=== PATIENT | male | born 1945 | race African-American/Black ===

== ENCOUNTER 2016-05-30 09:18 | Emergency (ER) | payer OTHER ==
[~2016-05-30] VITALS: Ht 190.5 cm; Wt 93.0 kg
[~2016-05-30 09:18] MED LIST: ACETAMINOPHEN325 M1 PO; ALLOPURINOL 30300 M1 PO; AMLODIPINE BESY10 MG PO; ASPIRIN325 PO; ATIVAN1 MG PO; BACTRIM DS TAB1 EACH PO; FLOMAX0.4 MG PO; LEVOTHYROXINE0.05 MG PO; LISINOPRIL40 MG PO; LOPRESSOR 50 MG50 M1 PO; LOPRESSOR100 M1 PO; NICOTINE TRANSD21 M1 TRANSDERM; PRINIVIL20 MG PO; PROTONIX40 M4 PO; SEROQUEL 12.512.5 MG PO
[2016-05-30 10:10] LABS: ABSOLUTE NEUTROPHILS 3.2 thou/uL (1.4-8.2); BASOPHILS 0.9 % (0.0-2.0); EOSINOPHILS 1.8 % (0.0-3.0); HEMATOCRIT 33.5 % (42.0-52.0); HEMOGLOBIN 11.2 gm/dL (14.0-18.0); LYMPHOCYTES 35.7 % (24.0-44.0); MCH 26.7 pg (26.0-34.0); MCHC 33.5 % (28.0-37.0); MCV 79.7 fL (80.0-100.0); MONOCYTES 10.1 % (1.0-8.0); PLATELET COUNT 177 thou/uL (150-400); POLYS 51.5 % (36.0-66.0); RBC 4.21 mil/uL (4.50-6.00); RDW 15.1 % (10.5-14.5); WBC 6.2 thou/uL (4.0-11.0)
[2016-05-30] MEDS ORDERED: ZANTAC 150MG T150 M1 PO (10:13)
[2016-05-30] MEDS ORDERED: MIRALAX PO (10:15)
[2016-05-30 10:17] LABS: MANUAL DIFF NO
[2016-05-30 10:30] LABS: ALBUMIN 2.8 g/dL (3.4-5.0); CALCIUM 8.9 mg/dL (8.5-10.1); TOTAL BILIRUBIN 0.5 mg/dL (<0.1-1.0); TOTAL PROTEIN 7.9 g/dL (6.4-8.2)
[2016-05-30 11:09] LABS: URINE BILIRUBIN NEGATIVE (Negative); URINE BLOOD 3+ (Negative); URINE COLOR YELLOW; URINE GLUCOSE-RANDOM* NEGATIVE (Negative); URINE KETONES NEGATIVE (Negative); URINE LEUKOCYTES-REFLEX 3+ (Negative); URINE PROTEIN (DIPSTICK) 3+ (Negative); URINE SPECIFIC GRAVITY 1.025 (1.003-1.035); URINE UROBILINOGEN 0.2 E.U./dl (0.2-1.0)
[2016-05-30 11:16] LABS: CRYSTALS None Seen /LPF (None Seen); URINE WBC-REFLEX >25 Many /HPF (0-5)
[2016-05-30 11:17] LABS: CASTS None Seen /LPF (None Seen); SQUAMOUS None Seen /LPF (0-3); URINE RBC 3-10 Few /HPF (0-2)
[2016-05-30] MEDS ORDERED: KEFLEX500 MG PO (11:30)
== END 2016-05-30 12:12 | disposition home or self-care (01) ==
LOC: ER 09:18
PROVIDERS: Physician Assistant
DX: N39.0 Urinary tract infection, site not specified (principal); R30.0 Dysuria; I11.0 Hypertensive heart disease with heart failure; F03.90 Unspecified dementia, unspecified severity, without behavioral disturbance, psychotic disturbance, mood disturbance, and anxiety; F17.210 Nicotine dependence, cigarettes, uncomplicated; Z86.73 Personal history of transient ischemic attack (TIA), and cerebral infarction without residual deficits

== ENCOUNTER 2019-06-17 09:54 | Inpatient (IN) | payer OTHER ==
[~2019-06-17] VITALS: Ht 190.5 cm; Wt 100.1 kg
[~2019-06-17 09:54] MED LIST changes: +KEFLEX500 MG PO; +MIRALAX PO; +ZANTAC 150MG T150 M1 PO
[2019-06-17 10:09] VITALS: BP 106/62
[2019-06-17 11:11] LABS: ABSOLUTE NEUTROPHILS 7.2 thou/uL (1.4-8.2); BASOPHILS 0.2 % (0.0-2.0); EOSINOPHILS 0.1 % (0.0-3.0); HEMOGLOBIN 13.3 gm/dL (14.0-18.0); LYMPHOCYTES 4.8 % (24.0-44.0); MCH 26.5 pg (26.0-34.0); MCHC 32.4 g/dL (28.0-37.0); MCV 81.8 fL (80.0-100.0); MONOCYTES 5.8 % (1.0-8.0); PLATELET COUNT 141 thou/uL (150-400); POLYS 89.1 % (36.0-66.0); RBC 5.02 mil/uL (4.50-6.00); RDW 15.2 % (10.5-14.5); WBC 8.1 thou/uL (4.0-11.0)
[2019-06-17 11:15] LABS: ANION GAP 11 mmol/L (7-16); BUN 16 mg/dL (7-18); CALCIUM 8.8 mg/dL (8.5-10.1); CHLORIDE 107 mmol/L (98-107); CO2 26 mmol/L (21-32); CREATININE 1.4 mg/dL (0.7-1.3); GLUCOSE 168 mg/dL (74-106); POTASSIUM 3.9 mmol/L (3.5-5.1); SODIUM 144 mmol/L (136-145)
[2019-06-17 11:24] LABS: ALBUMIN 3.5 g/dL (3.4-5.0); DIRECT BILIRUBIN < 0.1 mg/dL (<0.1-0.2); SGOT 26 U/L (15-37); SGPT 28 U/L (30-65); TOTAL BILIRUBIN 0.5 mg/dL (<0.1-1.0); TROPONIN-I 0.17 ng/mL (<0.06)
[2019-06-17 11:25] LABS: URINE BILIRUBIN NEGATIVE (Negative); URINE BLOOD 3+ (Negative); URINE CLARITY CLOUDY; URINE COLOR YELLOW; URINE GLUCOSE-RANDOM* NEGATIVE (Negative); URINE KETONES TRACE (Negative); URINE LEUKOCYTES-REFLEX 2+ (Negative); URINE NITRITE-REFLEX POSITIVE (Negative); URINE PROTEIN (DIPSTICK) 2+ (Negative); URINE SPECIFIC GRAVITY >= 1.030 (1.005-1.035)
[2019-06-17 11:33] LABS: CASTS None Seen /LPF (None Seen); SQUAMOUS 0-3 Few /LPF (0-3); YEAST-REFLEX Present (None Seen)
[2019-06-17 11:34] LABS: AMORPHOUS URATES Moderate /LPF (None Seen); URINE RBC None Seen /HPF (0-2); URINE WBC-REFLEX >25 Many /HPF (0-5)
[2019-06-17] MEDS ORDERED: PROSCAR 5MG TABL5 M1 PO (13:21)
[2019-06-17] MEDS ORDERED: KLOR-CON M2020 MEQ PO (13:22)
[2019-06-17 13:41] VITALS: BP 137/73
[2019-06-17 14:29] VITALS: BP 136/62
[2019-06-17 14:47] VITALS: BP 149/78
[2019-06-17 16:58] VITALS: BP 131/80
--- NOTE | 2019-06-17 17:38 | NUR ---
PT ADMITTED TO 364 FROM ER. PT ALERT AND ORIENTED X2. PT DISORIENTED TO PLACE, TIME. PT FOLLOWS COMMANDS, IN ROOM. PT IS A POOR HISTORIAN. PT HAS A MEDICAL HISTORY OF ALZEIMER'S. PT CONSENTS SIGNED BY WHO IS ALSO DPOA FOR PATIENT. PT AND ORIENTED TO ROOM. PT ADMISSION PAPEROWRK AND ASSESSMENT COMAPLETED. CALL LIGHT IN REACH, BED AT LOWEST LEVEL WITH ALARM ON. wILL CONTINUE TO [facility] .
--- NOTE | 2019-06-17 17:45 | NUR ---
1645 PT HAD AN EPISODE OF VOMITING,LOOKED LIKE FOOD RESIDUAL, PINK IN COLOR.DR. MARTINEZ IN ROOM, PANCHO GIVEN PER ORDER. wILL CONTINUE TO MONITOR.
[2019-06-17 19:12] VITALS: BP 160/74
[2019-06-18] VITALS (7 sets, daily range): BP systolic 147–193; BP diastolic 88–120
--- NOTE | 2019-06-18 02:28 | NUR ---
Patient making slow progress towards outcome goals. Incontinent of bowel and bladder. Vomitted previously ingested food for dinner, Zofran given with relief. IVfluids infusing. Oxygenation optimal on room air. Vital signs and rhythm stable.
[2019-06-18 06:50] LABS: HEMATOCRIT 39.2 % (42.0-52.0); HEMOGLOBIN 12.6 gm/dL (14.0-18.0); MCH 26.4 pg (26.0-34.0); MCHC 32.1 g/dL (28.0-37.0); MCV 82.4 fL (80.0-100.0); RBC 4.76 mil/uL (4.50-6.00); RDW 15.5 % (10.5-14.5); WBC 5.3 thou/uL (4.0-11.0)
[2019-06-18 07:03] LABS: CALCIUM 7.8 mg/dL (8.5-10.1); CREATININE 1.2 mg/dL (0.7-1.3); POTASSIUM 3.5 mmol/L (3.5-5.1); TROPONIN-I 0.19 ng/mL (<0.06)
--- NOTE | 2019-06-18 12:11 | NUR ---
Pt care taken over at 0700. pt alert and oriented to self and place. pt seeemed forgetful and agressive at times. education reinforced. Pt assessment completed. Call light and table in reach, bed alarm on. Will continue to monitor.
--- NOTE | 2019-06-18 15:02 | NUR ---
INITIAL ASSESSMENT: SW reviewed chart and spoke with nursing and attending physician. Pt was admitted from home due to UTI/sepsis. Pt with hx of dementia. SW met with pt at bedside. Introduced role of SW. Pt able to answer simple questions. No family present during time of visit. SW left voice message for pt's , Natalie, to obtain assessment info and discuss discharge plan. Therapy ordered to evaluate pt for discharge needs. SW is following to assist as needed with discharge planning.
--- NOTE | 2019-06-18 16:36 | NUR ---
Pt has had 3 watery BM, yellow in color. sample send to lab for possible C-diff. isolation precautions in place
--- NOTE | 2019-06-18 22:30 | NUR ---
INITIAL SBP 190. CYNTHIA LOPRESSOR PROVIDED. SBP 180/105 HR 90. BUSINESS SUPPORT CALLED RE PT HAD RUN OF 42 VTACH NOT SYMPTOMATIC. STAT LABS ORDERED. CHARGE NURSE NOTIFIED.
[2019-06-18 22:58] LABS: MAGNESIUM 1.6 mg/dL (1.8-2.4)
[2019-06-18 23:09] LABS: POTASSIUM 2.5 mmol/L (3.5-5.1)
--- NOTE | 2019-06-18 23:43 | NUR ---
PT RESTING CALMLY IN BED UPON ARRIVAL TO SHIFT. FECAL TUBE AND EXT CATHETER INTACT. PT DID REMOVE EXT CATHETER. IVF INTACT. [facility], FOLLOWS DIRECTIONS, FLAT AFFECT, LUNGS WITH WHEEZES. PT HAD LATE NIGHT EMESIS X1 PROJECTILE AT 2345, FOOD PARTICLES PRESENT BEEF. DENIES NAUSEA. PTS CALLED FOR STATUS UPDATE REPORTS DIFFICULTY WITH TRANSPORTATION. PT ON ELECTROLYTE REPLACEMENT. STAT LABS DRAWN AFTER 42 RUN VTACH, NOT SYMPTOMATIC . MANUAL BP 160/100 SBP ON VS READING SBP 180. BED ALARM ON.
[2019-06-19 04:37] VITALS: BP 141/89
[2019-06-19 08:31] LABS: CALCIUM 8.6 mg/dL (8.5-10.1); CREATININE 1.4 mg/dL (0.7-1.3); MAGNESIUM 1.7 mg/dL (1.8-2.4)
[2019-06-19 08:40] LABS: POTASSIUM 2.6 mmol/L (3.5-5.1)
--- NOTE | 2019-06-19 11:40 | 2DMMODE ---
[facility] [address] [place] [address] 2 D/M-MODE ECHOCARDIOGRAM Name: MELITA JIANG Room #: 364-P ADM IN M.R.#: [id number] Admission: 06/17/19 Attend Phys: Anthony Reeves MD Discharge: Date of : 49 Report #: [id number] THIS REPORT FOR: cc: FAM - Family physician unknown FAM - Family physician unknown Todd More MD ~ APPROVED REPORT Study performed: 06/19/2019 10:57:46 EXAM: Comprehensive 2D, Doppler, and color-flow Echocardiogram Patient Location: Bedside Room #: 364 Status: routine BSA: 2.20 HR: 122 bpm BP: 141/89 mmHg Rhythm: Tachycardia/irregular Other Information Study Quality: Adequate Technically limited study due to lung interference, no patient cooperation. Indications Elevated troponin. Hx: CHF, CVA, HTN, HLP. 2D Dimensions RVDd: 30.03 mm IVSd: 13.20 (7-11mm) LVOT Diam: 20.84 (18-24mm) LVDd: 42.76 mm PWd: 13.12 (7-11mm) Ascending Ao: 33.06 (22-36mm) LVDs: 31.60 (25-40mm) Aortic Root: 32.69 mm Volumes Left Atrial Volume (Systole) Single Plane 4CH: 40.89 mL Single Plane 2CH: 53.93 mL LA ESV Index: 24.00 mL/m2 Aortic Valve AoV Peak Kevin.: 1.24 m/s AO Peak Gr.: 6.14 mmHg LVOT Max P.70 mmHg [facility] [address] [place] [address] 2 D/M-MODE ECHOCARDIOGRAM Name: MELITA JIANG Jenelle Room #: 364-P [facility] IN [facility]#: [id number] Admission: 06/17/19 Attend Phys: Manisha Persaud Discharge: Date of : 49 Report #: [id number] LVOT Max V: 0.96 m/s CINTHIA Vmax: 2.65 cm2 Pulmonary Valve PV Peak Kevin.: 0.77 m/s PV Peak Gr.: 2.35 mmHg Tricuspid Valve TR Peak Kevin.: 2.91 m/s TR Peak Gr.: 34.00 mmHg Left Ventricle The left ventricle is normal size. There is normal LV segmental wall motion. Mild to moderate concentric left ventricular hypertrophy. Left ventricular systolic function is normal. LVEF is 55-60%. This study is not technically sufficient to allow evaluation of the LV diastolic function. Right Ventricle The right ventricle is normal size. The right ventricular systolic function is normal. Atria Left atrium is mildly dilated. The right atrium size is normal. Aortic Valve The aortic valve is normal in structure. No aortic regurgitation is present. There is no aortic valvular stenosis. Mitral Valve The mitral valve is normal in structure. Mild mitral annular calcification. Mild mitral regurgitation. No evidence of mitral valve stenosis. Tricuspid Valve The tricuspid valve is normal in structure. Trace tricuspid regurgitation. Estimated PAP is 34mmHg plus the right atrial pressure. Pulmonic Valve The pulmonary valve is normal in structure. Trace pulmonic regurgitation. Great Vessels The aortic root is normal in size. The ascending aorta is normal in size. IVC is not well visualized. [facility] [address] [place] [address] 2 D/M-MODE ECHOCARDIOGRAM Name: MELITA JIANG Room #: 364-P [facility] IN [facility].#: [id number] Admission: 06/17/19 Attend Phys: Manisha Persaud Discharge: Date of : 49 Report #: [id number] Pericardium There is no pericardial effusion. <Conclusion> The left ventricle is normal size. Mild to moderate concentric left ventricular hypertrophy. Left ventricular systolic function is normal. The right ventricle is normal size. Left atrium is mildly dilated. The aortic valve is normal in structure. Mild mitral regurgitation. Trace tricuspid regurgitation. Estimated PAP is 34mmHg plus the right atrial pressure. <ELECTRONICALLY SIGNED> By: Todd More MD 06/19/19 1140 1140 1140 Todd More MD /INF
--- NOTE | 2019-06-19 12:06 | NUR ---
SW reviewed chart and spoke with nursing and attending physician. Pt placed in isolation for possible c.diff. SW spoke with pt's via phone. Introduced role of SW. Pt lives at home with his . Prior to admission, pt was able to ambulate in the home. Pt has a cane and walker. Pt does not like to use the walker, but will use the cane if instructed. Pt has used [facility] in the past and has been to [facility]. Awaiting therapy evals at this time. Pt's is agreeable with either HH or SNF placement if needed. Pt's PCP is Dr. Rodriguez. SW is following to assist as needed with discharge planning.
[2019-06-19 13:17] LABS: CALCIUM 8.6 mg/dL (8.5-10.1); CREATININE 2.3 mg/dL (0.7-1.3); MAGNESIUM 1.9 mg/dL (1.8-2.4)
[2019-06-19 13:18] LABS: POTASSIUM 3.6 mmol/L (3.5-5.1)
[2019-06-19 15:45] VITALS: BP 115/86
--- NOTE | 2019-06-19 18:36 | NUR ---
PATIENT NOTED OT AHVE DISTENDED ABDOMEN NAZ. TO THE LEFT LOWER QUADRANT.CT SCAN DID SHOW SBO AND NEW ORDERS TO PLACE NG TUBE. 1ST PLACEMENT WAS NOT IN PLACE AND TUBE REPOSITIONED. SECOND KUB SHOWED NG TUBE IN PLACE. IT IS NOW DRAINING DARK BROWN ABDOMINAL CONTENTS. RECTAL TUBE IN PLACE. HAS NOT DRAIN THAT MUCH TODAY. CDIFF WAS NEGATIVE AND PT NOT IN ISOLATION.
[2019-06-19 20:45] VITALS: BP 151/97
[2019-06-20 00:55] LABS: CALCIUM 8.5 mg/dL (8.5-10.1); CREATININE 2.6 mg/dL (0.7-1.3); POTASSIUM 3.7 mmol/L (3.5-5.1); TROPONIN-I 0.4 ng/mL (<0.06)
[2019-06-20 01:07] LABS: GLYCOHEMOGLOBIN (HGB A1C) 6.2 % (4.8-5.6)
[2019-06-20 06:07] VITALS: BP 153/85
--- NOTE | 2019-06-20 06:39 | NUR ---
Pt. restless at beginning of shift. Incontinent of bladder. Pt. cleaned for incontinence and male external catheter placed. He has been repositioned for comfort. NG to LIS with 900 ml of brownish dge. No c/o nausea and denies pain. Bed alarm on for safety. SCD's on for DVT prophylaxis. Will continue to monitor.
[2019-06-20 07:55] VITALS: BP 156/98
[2019-06-20 08:21] LABS: HEMATOCRIT 44.4 % (42.0-52.0); HEMOGLOBIN 14.1 gm/dL (14.0-18.0); MCHC 31.7 g/dL (28.0-37.0); MCV 82.1 fL (80.0-100.0); RBC 5.41 mil/uL (4.50-6.00); RDW 15.6 % (10.5-14.5); WBC 17.3 thou/uL (4.0-11.0)
--- NOTE | 2019-06-20 10:40 | NUR ---
Pt NPO, DR. MARTINEZ PAGED ABOUT PT PO MEDS. SHE WANTS PT PO MEDS TO BE ON HOLD UNLESS IT CAN BE GIVEN IV. PHARMACY NOTIFIED
--- NOTE | 2019-06-20 11:22 | EKG ---
[facility] [place] [address] [place] [address] ELECTROCARDIOGRAM REPORT Name: MELITA JIANG Room #: 364-P ADM IN M.R.#: [id number] Admission: 06/17/19 Attend Phys: Anthony Reeves MD Discharge: Date of : 49 Report #: [id number] THIS REPORT FOR: cc: FAM - Family physician unknown FAM - Family physician unknown Theodore Polo MD ~ THIS REPORT FOR: //name// [facility] ED Test Date: 2019-06-17 Test Time: 11:08:41 Pat Name: MELITA JIANG Department: Room: 364 Gender: M Instrument Fitter: ASHISH : 1945 Requested By: Fadumo Lynn Order Number: [id number] MD: Theodore Polo Measurements Intervals [place] Rate: 81 P: 42 IA: 152 QRS: -46 QRSD: 120 T: 118 QT: 383 QTc: 445 Interpretive Statements Sinus rhythm Ventricular trigeminy Probable left atrial enlargement LVH with IVCD, LAD and secondary repol abnrm Baseline wander in lead(s) V1,V2,V5 Compared to ECG 04/19/2016 10:00:30 Electronically Signed On 06-17-2019 16:52:50 SCIENCE EDITOR by Theodore Polo [email or web address] <ELECTRONICALLY SIGNED> By: Theodore Polo MD 06/17/19 1652 07 Theodore Polo MD /EPI
[2019-06-20 12:53] LABS: CALCIUM 8.6 mg/dL (8.5-10.1); CREATININE 2.1 mg/dL (0.7-1.3); POTASSIUM 3.5 mmol/L (3.5-5.1)
--- NOTE | 2019-06-20 17:05 | NUR ---
SW reviewed chart and spoke with nursing and attending physician. Pt had NG tube placed due to SBO. Surgery consulted. No weekend discharge planned. DU is following to assist as needed with discharge planning.
[2019-06-20 21:23] VITALS: BP 154/82
[2019-06-21 03:46] VITALS: BP 138/76
[2019-06-21 07:31] LABS: HEMATOCRIT 39.3 % (42.0-52.0); HEMOGLOBIN 12.7 gm/dL (14.0-18.0); MCHC 32.2 g/dL (28.0-37.0); MCV 80.6 fL (80.0-100.0); RBC 4.88 mil/uL (4.50-6.00); RDW 15.6 % (10.5-14.5); WBC 14.1 thou/uL (4.0-11.0)
[2019-06-21 07:41] LABS: ALBUMIN 2.5 g/dL (3.4-5.0); CREATININE 1.3 mg/dL (0.7-1.3); PHOSPHORUS 1.6 mg/dL (2.5-4.9); POTASSIUM 3.5 mmol/L (3.5-5.1)
[2019-06-21 07:50] VITALS: BP 149/85
--- NOTE | 2019-06-21 08:08 | NUR ---
PT MAKING PROGRESS TOWARDS GOALS. PT DENIED ANY PAIN OR NAUSEA THROUGHOUT THE NIGHT. OFFERED WATER SWAB, ICE CHIPS BUT REFUSED EACH TIME. SEE CHARTING.
--- NOTE | 2019-06-21 16:15 | NUR ---
SW reviewed chart and spoke with nursing and attending physician. Pt with NG tube in place. No weekend discharge planned. DU is following to assist as needed with discharge planning.
[2019-06-21 16:22] VITALS: BP 176/77
--- NOTE | 2019-06-21 17:35 | NUR ---
ASSUMED CARE OF PT AT 0700. PT CONFUSED, PLEASANT, IN NO ACUTE DISTRESS. WHILE DOING ABDOMINAL SERIES XR - FOUND NG TUBE CLOGGED. INSTRUCTED TO PLACE NEW NG TUBE. PATIENT VERY FORGETFUL, DOES NOT REMEMBER EVVER HAVING NG TUBE. AGITATED AND COMBATIVE WHEN TRYING TO PUT IN NG TUBE, SAYING HE HAS NEVER HAD NG TUBE IN. NOTIFIED SURGEON - INSTRUCTED TO KEEP NG TUBE OUT FOR NOW. WILL CONT TO MONITOR.
[2019-06-21 19:29] VITALS: BP 152/79
[2019-06-22 05:04] VITALS: BP 156/91
[2019-06-22 07:12] VITALS: BP 157/88
--- NOTE | 2019-06-22 08:56 | NUR ---
PT MAKING SLOW PROGRESS TOWARDS GOALS. DENIED ANY ABDOMINAL PAIN OR NAUSEA. VERY SMALL AMOUNT OF BROWN STOOL IN FECAL TUBE.
[2019-06-22 10:57] LABS: ALBUMIN 2.5 g/dL (3.4-5.0); CALCIUM 7.8 mg/dL (8.5-10.1); POTASSIUM 3.2 mmol/L (3.5-5.1); TROPONIN-I 0.34 ng/mL (<0.06)
[2019-06-22 15:54] VITALS: BP 168/100
[2019-06-22 16:10] VITALS: BP 171/91
--- NOTE | 2019-06-22 16:47 | NUR ---
Assumed care approx. 0700 this AM. NPO diet changed to clear liquids. Pt has tolerated the little jello and cup of water given so far. Will discontinue fecal management system per order. 2 bags of potassium IV infused for low K+. at bedside to visit. No n/v/diarrhea. Will continue to monitor. Pt progressing toward plan of care goals.
[2019-06-22 20:10] VITALS: BP 178/96
[2019-06-22 23:40] VITALS: BP 140/85
[2019-06-23 05:30] VITALS: BP 157/83
[2019-06-23 05:43] LABS: ALBUMIN 2.4 g/dL (3.4-5.0); PHOSPHORUS 2.4 mg/dL (2.5-4.9); POTASSIUM 3.2 mmol/L (3.5-5.1)
[2019-06-23 08:14] VITALS: BP 164/90
--- NOTE | 2019-06-23 08:28 | NUR ---
PT MAKING POOR PROGRESS TOWARDS GOALS. NOTED CLEAR LIQUID DIET ORDERED. PER VISITOR PT HAD BEEN DRINKING SPRITE, UNKNOWN QUANTITY. PT DID HAVE ONE EPISODE OF A LARGE AMOUNT (1000ML) OF EMESIS, BROWN LIQUID. IV ZOFRAN GIVEN. NO FURTHER EPISODES NOTED OVERNIGHT. PT JUST GIVEN SWABS FOR REMAINDER OF THE NIGHT. DAY RN INFORMED. DENIED ANY ABDOMINAL PAIN OR NAUSEA SINCE THAT EPISODE.
[2019-06-23 16:18] VITALS: BP 163/84
--- NOTE | 2019-06-23 18:50 | NUR ---
ASSUMED CARE OF PT AT 0700. STILL UNABLE TO TOLERATE PO. PURGING BROWN LIQUID. NOW NPO. OTHERWISE IN NO ACUTE DISTRESS, VOICING NO CONCERNS. XRs ORDERED FOR AM.
[2019-06-23 21:30] VITALS: BP 194/114
[2019-06-24 02:57] VITALS: BP 168/86
[2019-06-24 05:39] LABS: HEMATOCRIT 34.9 % (42.0-52.0); HEMOGLOBIN 11.5 gm/dL (14.0-18.0); MCH 26.6 pg (26.0-34.0); MCHC 32.9 g/dL (28.0-37.0); MCV 80.8 fL (80.0-100.0); RBC 4.32 mil/uL (4.50-6.00); RDW 14.8 % (10.5-14.5)
[2019-06-24 06:16] LABS: ALBUMIN 2.4 g/dL (3.4-5.0); CALCIUM 7.9 mg/dL (8.5-10.1); MAGNESIUM 1.6 mg/dL (1.8-2.4); PHOSPHORUS 2.9 mg/dL (2.5-4.9); POTASSIUM 3.5 mmol/L (3.5-5.1)
--- NOTE | 2019-06-24 06:33 | NUR ---
Pt. has been assisted to reposition for comfort. Afebrile. Denies any pain. No nausea or vomiting. IV fluids infusing , kept NPO. Bed alarm on for safety and SCD's in place for DVT prophylaxis. Making progress towards care plan goals.
[2019-06-24 08:13] VITALS: BP 176/108
--- NOTE | 2019-06-24 16:05 | NUR ---
RD Recommendations: Today is day 6 with no/minimal nutrition. If gut not indicated to feed and diet advancement not appropriate, would recommend considering starting TPN in the next 1-2 days. 1) If TPN indicated to start, recommend standard TPN at goal rate of 90 ml/hr to be reached slowly over 3 days. AT INCREASED REFEEDING SYNDROME RISK. 2) If inflammatory condition(s) present, would consider withholding lipids in the 1st week of TPN as intralipids are soy-based and more inflammatory prone. If lipids withheld, increase TPN rate to goal rate of 105 ml/hr.
--- NOTE | 2019-06-24 16:35 | NUR ---
DU reviewed chart and spoke with nursing and attending physician. Pt has NG tube in place. Surgery is following. SW spoke with pt's via phone to provide update and discuss discharge plan: post-acute placement prior to returning home. Pt's is agreeable with post-acute placement at [facility]. Pt has been to [facility] in the past. SNF referral to be faxed tomorrow. Will need insurance authorization. DU is following to assist as needed with discharge planning.
[2019-06-24 16:52] VITALS: BP 189/112
--- NOTE | 2019-06-24 19:50 | NUR ---
PATIENT CONT TO REST IN BED AT THIS TIME. HAD A LARGE BM THIS PM. KEPT CLEAN. HE IS ALERT OT SELF. DOES NOT SEEM TO BE IN PAIN. CONT ON ABT. NO ADVERSE EFFECTS NOTED. WILL CONT WITH PLAN OF CARES.
[2019-06-24 19:52] VITALS: BP 182/103
[2019-06-25] VITALS (7 sets, daily range): BP systolic 149–190; BP diastolic 80–118
--- NOTE | 2019-06-25 03:51 | NUR ---
Pt. has been awake watching TV till late this am. Repositioned prn. Kept NPO per order. No nausea or vomiting. Incontinent of bladder. Clean for incontinence then external cath placed. Afebrile. Making progress towards care plan goals.
[2019-06-25 05:43] LABS: HEMOGLOBIN 11.5 gm/dL (14.0-18.0); MCH 26.5 pg (26.0-34.0); MCHC 32.8 g/dL (28.0-37.0); MCV 80.8 fL (80.0-100.0); RBC 4.33 mil/uL (4.50-6.00); WBC 7.1 thou/uL (4.0-11.0)
[2019-06-25 06:32] LABS: ALBUMIN 2.4 g/dL (3.4-5.0); CALCIUM 8.1 mg/dL (8.5-10.1); CREATININE 0.8 mg/dL (0.7-1.3); MAGNESIUM 1.8 mg/dL (1.8-2.4); PHOSPHORUS 2.5 mg/dL (2.5-4.9); POTASSIUM 3.5 mmol/L (3.5-5.1)
--- NOTE | 2019-06-25 14:47 | NUR ---
DISCHARGE PLANNING. POST ACUTE RECOMMENDED AT DISCHARGE. PATIENT REFERRAL FAXED TO [facility] PER REQUEST. CALL PLACED TO KRISTOFER TO NOTIFY. PER KRISTOFER, CP REVIEWED AND DENIED PATIENT DUE TO PATIENTS DEMENTIA AND BEHAVIORS. BEDSIDE EVALUATION REQUESTED. MADELAINE GARCIA LIAISON, TO DO BEDSIDE EVAL TODAY WITH PATIENT. UNIT SW NOTIFIED.
--- NOTE | 2019-06-25 14:50 | NUR ---
SW reviewed chart and spoke with nursing and attending physician. Pt is progressing towards goals for discharge. Pt's diet is being advanced. Referral faxed to [facility] for review. [facility] liaison to do onsite evaluation today. Will need insurance authorization for SNF placement. DU is following to assist as needed with discharge planning.
--- NOTE | 2019-06-25 16:34 | NUR ---
Assumed care approx. 0700 this AM. Pt up to chair for most of the shift. Pt back to bed x2 assist with gait belt and walker. Pt remains on room air and SR on the monitor. Pt tolerating oral intake of clears (jello & water). No BM noted up to this point. Abdominal x-ray complete at bedside today. Maintenance fluids infusing per orders. Pts at bedside to visit and called to check on patient once. No complaints of pain. No n/v/diarrhea. Will continue to monitor. Pt slowly progressing toward plan of care goals.
[2019-06-26 00:14] LABS: HEMATOCRIT 38.5 % (42.0-52.0); HEMOGLOBIN 12.3 gm/dL (14.0-18.0); MCH 26.4 pg (26.0-34.0); MCHC 32.1 g/dL (28.0-37.0); MCV 82.3 fL (80.0-100.0); PLATELET COUNT 219 thou/uL (150-400); RBC 4.67 mil/uL (4.50-6.00); RDW 15.3 % (10.5-14.5); WBC 10.6 thou/uL (4.0-11.0)
--- NOTE | 2019-06-26 00:19 | NUR ---
SOLVENT PLANT TREATER CALLED FOR DECREASED LOC. SEE SOLVENT PLANT TREATER FLOWSHEET.
[2019-06-26 00:26] LABS: CALCIUM 8.7 mg/dL (8.5-10.1); CREATININE 1.3 mg/dL (0.7-1.3); POTASSIUM 3.4 mmol/L (3.5-5.1)
[2019-06-26 00:36] LABS: ALBUMIN 2.9 g/dL (3.4-5.0); MAGNESIUM 1.8 mg/dL (1.8-2.4); TOTAL BILIRUBIN 0.7 mg/dL (<0.1-1.0); TOTAL PROTEIN 8.2 g/dL (6.4-8.2); TROPONIN-I 0.34 ng/mL (<0.06)
[2019-06-26 01:20] LABS: PLATELET ESTIMATE NORMAL; POLYCHROMASIA 1+
[2019-06-26 01:21] LABS: ANISOCYTOSIS 1+; POIKILOCYTOSIS 1+
[2019-06-26 04:51] VITALS: BP 140/70
--- NOTE | 2019-06-26 05:00 | NUR ---
WATER INSPECTOR CALLED FOR POSSIBLE SEIZURE. SEE WATER INSPECTOR NOTE.
--- NOTE | 2019-06-26 06:43 | NUR ---
Around 2344 , tele monitor alarmed for tachycardia in the 160's ( afib RVR burst ). RN and SUPERVISING APPRAISER who's in the room stated he has left facial droop and unable to respond verbally. SED HIGH SCHOOL TEACHER activated ( see SED HIGH SCHOOL TEACHER note ) and METAL ALLOY SCIENTIST notified. Pt. taken to CAT scan and received results that there's nothing acute from radiology. While pt. in CT scan his mentation is back to baseline and able to respond verbally. HR also is back to his baseline ST with PVC's. BG 166 and O2 sat in the upper 90's in RA. Elevated troponin and low K level reported to METAL ALLOY SCIENTIST and order received. KCL 40 meq IV given. Cardiology consult called to answering service this am. Around 0445 while getting ready to start 2nd bag of IV Kcl , pt. witnessed to be shaking and started moaning HR in the 160's again. Left mouth drooling with small amount of clear saliva. Shaking lasted for about a minute then he started to calm down. SED HIGH SCHOOL TEACHER activated again at that time. METAL ALLOY SCIENTIST notified. IV keppra and lorazepam Iv given. Neuro consult called to answering service this am. Seizure precautions initiated. , Alejandra's notified of above. When asked if pt. has hx of seizure or irregular heart rate she stated no. Updated her on event and that neurology and branch account executive are being consulted. Another IV access started. Pt. currently is resting on bed. Had 2 med loose bm last night. No nausea or vomiting and denied being in pain. External male catheter in place. Will continue to monitor.
[2019-06-26 07:35] VITALS: BP 162/91
--- NOTE | 2019-06-26 11:11 | EKG ---
[facility] [place] [address] ELECTROCARDIOGRAM REPORT Name: MELITA JIANG Room #: 364-P ADM IN M.R.#: [id number] Admission: 06/17/19 Attend Phys: Anthony Reeves MD Discharge: Date of : 49 Report #: [id number] THIS REPORT FOR: cc: FAM - Family physician unknown FAM - Family physician unknown Theodore Polo MD ~ THIS REPORT FOR: //name// [facility] Test Date: 2019-06-26 Test Time: 00:03:29 Pat Name: MELITA JIANG Department: Room: 364 P Gender: M Midlevel Provider: toño : 1945 Requested By: Georgia Wills Order Number: [id number] MD: Theodore Polo Measurements Intervals [place] Rate: 112 P: 53 NJ: 146 QRS: -51 QRSD: 100 T: 231 QT: 327 QTc: 447 Interpretive Statements Sinus tachycardia Ventricular premature complex Left anterior fascicular block Compared to ECG 06/17/2019 11:08:41 Electronically Signed On 06-26-2019 11:10:42 WEBFED OFFSET PRESS OPERATOR by Theodore Polo [email or web address] <ELECTRONICALLY SIGNED> By: Theodore Polo MD 06/26/19 1110 0003 0003 Theodore Polo MD /EPI
--- NOTE | 2019-06-26 12:18 | NUR ---
DU reviewed chart and spoke with nursing and attending physician. PRINT ROOM WORKER was called twice during manufacturing shift supervisor due to seizure activity. Neuro consult ordered. DU notified that [facility] is unable to accept pt due to his dementia. DU met with pt and family at bedside to provide update and discuss alternate SNF options. Provided pt's with list of in-network facilities. [facility]. materials planner to fax referral. Will need insurance authorization for SNF placement. DU is following to assist as needed with discharge planning.
--- NOTE | 2019-06-26 14:58 | NUR ---
Nutrition update: Chart reviewed. Pt no longer NPO. Clear liquid diet added back at dinner on 06/24. He advanced to regular diet last evening but refused dinner. Will wait to see meal intake abilities after a full day of meals today and follow up further tomorrow to review and add appropriate interventions.
[2019-06-26 16:02] VITALS: BP 128/81
--- NOTE | 2019-06-26 20:18 | NUR ---
Assumed care approx. 0700 this AM. Pt drowsy and slept most of the day, but became more awake later in the afternoon. Pt ate dinner tray with assistance from . No indication of seizure activity this shift. No bowel movements today. Pt went to MRI scan today-awaiting results. Pt and sister at bedside most of the day. No new changes noted. No complaints of nausea or pain. Seizure and fall precautions in place. Pt slightly progressing toward plan of care goals.
[2019-06-26 20:30] VITALS: BP 140/83
[2019-06-27 05:00] VITALS: BP 129/79
--- NOTE | 2019-06-27 05:24 | NUR ---
ASSUMED CARE FOR PT AT 1845, PT IS ALERT TO ANSWER QUESTIONS SLOWLY, BUT IS PRETTY DROWSY. EXTERNAL CATH IN PLACE WITH GOOD OUTPUT. PT HAD 1 BM OVERNIGHT. NO ISSUES SEEN WITH SEIZURE ACTIVITY. HR IN 90/100 WITH PVC'S. WILL CONTINUE TO MONITOR.
[2019-06-27 07:55] VITALS: BP 155/94
[2019-06-27 10:19] LABS: HEMATOCRIT 36.6 % (42.0-52.0); HEMOGLOBIN 11.8 gm/dL (14.0-18.0); MCH 26.4 pg (26.0-34.0); MCHC 32.1 g/dL (28.0-37.0); MCV 82.3 fL (80.0-100.0); RBC 4.45 mil/uL (4.50-6.00); RDW 16.1 % (10.5-14.5); WBC 7.4 thou/uL (4.0-11.0)
[2019-06-27 10:28] LABS: CALCIUM 8.6 mg/dL (8.5-10.1); CREATININE 1.1 mg/dL (0.7-1.3); POTASSIUM 3.8 mmol/L (3.5-5.1)
--- NOTE | 2019-06-27 15:39 | NUR ---
SW reviewed chart and spoke with nursing and attending physician. Pt is progressing towards goals for discharge planning. [facility] SNF can accept pt pending insurance authorization. Insurance auth started this morning. SW met with pt and at bedside to provide update. Both are aware and agreeable with discharge plan. SW is following to assist as needed with discharge planning.
[2019-06-27 15:42] VITALS: BP 152/89
--- NOTE | 2019-06-27 16:57 | NUR ---
Assumed care approx. 0700 this AM. Pt much more alert and awake today. Pt up and walking with assistance using a gait belt and a walker to the hallway and back to the chair in the room. Pts concerned about the pts anxiousness as the seroquel has been on hold; Dr. Pinto notified and restarted the seroquel PRN. Pt has had two BM's today. No seizure activity noted. Fall and seizure precautions in place. Will continue to monitor. Pt progressing toward plan of care goals.
[2019-06-27 20:30] VITALS: BP 149/89
[2019-06-28 04:45] VITALS: BP 154/90
[2019-06-28 07:50] VITALS: BP 154/95
--- NOTE | 2019-06-28 12:50 | NUR ---
DU reviewed chart and spoke with nursing and attending physician. Pt is medically stable for discharge to [facility] pending insurance authorization. SW notified [facility] liaison. Facility can accept pt when insurance authorization is obtained. DU is following to assist as needed with discharge planning.
--- NOTE | 2019-06-28 14:24 | HC ---
[facility] [place] [address] CONSULTATION Name: MELITA JIANG Room #: 364-P [facility] IN .R.#: [id number] Admission: 06/17/19 Attend Phys: Anthony Reeves MD Discharge: Date of : 49 Report #: [id number] THIS REPORT FOR: cc: OUMOU - Family physician unknown OUMOU - Family physician unknown Xochitl Zazueta MD ~ CC: Anthony COELLO unknown Roshan Box DATE OF SERVICE: 06/21/2019 REASON FOR CONSULTATION: Acute kidney injury. REASON FOR PRESENTATION: Vomiting. HISTORY OF PRESENT ILLNESS: This is a 73-year-old who presented to the Emergency Room reporting that he has been having persistent issues with vomiting. He was admitted to further evaluate and was found to have an inguinal hernia, which was reported to be incarcerated on the CT; however, this was not the case on physical examination. The patient is not known to have previous kidney problems and with his persistent nausea and intestinal obstruction. His creatinine has continued to go up to 2.6 due to third spacing. He is known to have advanced dementia with CVA and left-sided weakness. He was evaluated by the surgical team. It seems like with hydration, his creatinine has started to go up and his labs from today are pending. PAST MEDICAL HISTORY: 1. Dementia. 2. Coronary artery disease. 3. Cardiac catheterization. 4. Hypertension. 5. CHF. 6. CVA with mild left-sided weakness. SOCIAL HISTORY: Denies drug abuse. He quit heavy drinking habits in 2003. FAMILY HISTORY: Significant for heart disease. HOME MEDICATIONS: 1. Tamsulosin. 2. Metoprolol. 3. Amlodipine. 4. Lisinopril. 5. Potassium. [facility] [address] [place] [address] CONSULTATION Name: MELITA JIANG Room #: 364-P [facility].#: [id number] Admission: 06/17/19 Attend Phys: Anthony Reeves MD Discharge: Date of : 47 Report #: [id number] ALLERGIES: None. REVIEW OF SYSTEMS: GENERAL: No fever or chills. CARDIOVASCULAR: No chest pain or palpitation. PULMONARY: No cough or hemoptysis. GASTROINTESTINAL: As per the history of present illness. GENITOURINARY: No frequency, no urgency. NEUROLOGICAL: No headache, no dizziness. PHYSICAL EXAMINATION: VITAL SIGNS: Blood pressure is 166/78, temperature 36.5. HEAD AND NECK: No jugular venous distention. CHEST: No crackles. CARDIOVASCULAR: No rub. ABDOMEN: Distended with slight tenderness. EXTREMITIES: Lower extremities, no edema. LABORATORY DATA: White blood cell count 14.1, platelet 120. Sodium is 149, potassium is 3.5, chloride is 113. Carbon dioxide is 25, creatinine is now down to 1.3. Phosphorus is 1.6. ASSESSMENT, IMPRESSION AND PLAN: 1. Acute kidney injury due to third spacing due to intestinal obstruction that had resolved. 2. Hypernatremia. 3. Hypertension. 4. Reformulate the IV fluid to address his hypernatremia. 5. Discontinue potassium supplementation. 6. Replace phosphorus. 7. Management of his intestinal obstructions and ongoing had any issues as per the primary team. 8. No further renal recommendations. <ELECTRONICALLY SIGNED> By: Xochitl Zazueta MD 06/28/19 1424 [id number] [id number] Xochitl Zazueta MD /nt
[2019-06-28] MEDS ORDERED: KEPPRA 500 MG500 M1 PO (15:15)
[2019-06-28] MEDS ORDERED: SENNA-TIME S T1 EACH PO (15:16)
[2019-06-28 15:31] VITALS: BP 152/89
--- NOTE | 2019-06-28 17:26 | NUR ---
PATIENT DISCHARGED AT THIS TIME TO [place]. HE IS ALERT ORIENTED TO SELF. HERE WITH PATIENT. DOES NOT SEEM TO BE IN PAIN. RESPIRATIOS ARE EVEN NON LABORED.
== END 2019-06-28 17:39 | DRG 871 ==
LOC: ER 09:54 → EROBS 13:30 → 3W 13:30
PROVIDERS: Emergency Medicine; Hospitalist; Nurse Practitioner; Nurse Practitioner Family; Surgery; ADMIT Hospitalist
DX: A41.9 Sepsis, unspecified organism (principal); N17.0 Acute kidney failure with tubular necrosis; N39.0 Urinary tract infection, site not specified; I42.6 Alcoholic cardiomyopathy; E87.2 Acidosis; I69.354 Hemiplegia and hemiparesis following cerebral infarction affecting left non-dominant side; E87.0 Hyperosmolality and hypernatremia; E87.1 Hypo-osmolality and hyponatremia; K40.30 Unilateral inguinal hernia, with obstruction, without gangrene, not specified as recurrent; E46 Unspecified protein-calorie malnutrition; G30.9 Alzheimer's disease, unspecified; I11.0 Hypertensive heart disease with heart failure; I50.9 Heart failure, unspecified; M10.9 Gout, unspecified; F17.210 Nicotine dependence, cigarettes, uncomplicated; R65.20 Severe sepsis without septic shock; E86.0 Dehydration; R79.89 Other specified abnormal findings of blood chemistry; I25.10 Atherosclerotic heart disease of native coronary artery without angina pectoris; N40.0 Benign prostatic hyperplasia without lower urinary tract symptoms; G47.00 Insomnia, unspecified; E87.6 Hypokalemia; E78.5 Hyperlipidemia, unspecified; B96.20 Unspecified Escherichia coli [E. coli] as the cause of diseases classified elsewhere; E83.39 Other disorders of phosphorus metabolism; R00.0 Tachycardia, unspecified; E87.8 Other disorders of electrolyte and fluid balance, not elsewhere classified; R56.9 Unspecified convulsions; Z82.49 Family history of ischemic heart disease and other diseases of the circulatory system; Z86.010 Personal history of colon polyps; Z68.27 Body mass index [BMI] 27.0-27.9, adult; Z79.2 Long term (current) use of antibiotics; Z79.899 Other long term (current) drug therapy
CPT/HCPCS: 10879

== ENCOUNTER 2019-09-26 13:27 | Inpatient (IN) | payer OTHER ==
[~2019-09-26] VITALS: Ht 190.5 cm; Wt 89.4 kg
[~2019-09-26 13:27] MED LIST changes: +BACTRIM DS TAB1 EAC1 PO; +KEPPRA 500 MG500 M1 PO; +KLOR-CON M2020 MEQ PO; +PROSCAR 5MG TABL5 M1 PO; +SENNA-TIME S T1 EACH PO; -SEROQUEL 12.512.5 MG PO; +SEROQUEL 25 MG25 M1 PO
[2019-09-26 13:28] VITALS: BP 134/61
[2019-09-26 13:56] LABS: ABSOLUTE NEUTROPHILS 5.6 thou/uL (1.4-8.2); BASOPHILS 0.5 % (0.0-2.0); EOSINOPHILS 3.6 % (0.0-3.0); HEMATOCRIT 26.4 % (42.0-52.0); HEMOGLOBIN 8.6 gm/dL (14.0-18.0); LYMPHOCYTES 20.5 % (24.0-44.0); MCH 24.9 pg (26.0-34.0); MCHC 32.6 g/dL (28.0-37.0); MCV 76.6 fL (80.0-100.0); MONOCYTES 7.4 % (1.0-8.0); PLATELET COUNT 232 thou/uL (150-400); RBC 3.44 mil/uL (4.50-6.00); RDW 16.2 % (10.5-14.5); WBC 8.2 thou/uL (4.0-11.0)
[2019-09-26 13:59] LABS: CALCIUM 7.9 mg/dL (8.5-10.1); CREATININE 1.1 mg/dL (0.7-1.3)
[2019-09-26] MEDS ORDERED: FLOMAX0.4 MG PO (15:26)
[2019-09-26] MEDS ORDERED: NORVASC 2.5 MG2.5 M1 PO (15:29)
[2019-09-26] MEDS ORDERED: COLACE100 MG PO (15:30)
[2019-09-26 15:31] VITALS: BP 118/53
[2019-09-26 16:17] VITALS: BP 127/65
[2019-09-26 17:51] VITALS: BP 143/92
[2019-09-26 19:25] VITALS: BP 144/78
--- NOTE | 2019-09-26 19:40 | NUR ---
ASSUMED CARE OF PATIENT AT 1630. PATIENT IS MED/SURG. ADMISSION AND PHOTOS PERFORMED BY DEVENDRA BOYER. GREGORIO CATHETER INITIATED WITH YELLOW URINE FLOWING. FENTANYL GIVEN PAIN. IV ABX. PATIENT TO CONTINUE WITH POC.
--- NOTE | 2019-09-27 03:43 | NUR ---
ASSESSED AT START OF SHIFT PT AWAKE AND ALERT TO PERSON AND PLACE. IV INTACT AND ABX INFUISINNG. FOLLEY INPLACE. WOUND DRESSING INTACT. ON A PUREED DIET. FALL PREC IN PLACE AND CALL LIGHT IN REACH WILL CONT WITH POC TILL EOS.
[2019-09-27 04:29] VITALS: BP 144/87
[2019-09-27 06:20] LABS: HEMATOCRIT 25.1 % (42.0-52.0); HEMOGLOBIN 8.3 gm/dL (14.0-18.0); MCH 25.3 pg (26.0-34.0); MCHC 33.3 g/dL (28.0-37.0); MCV 76.2 fL (80.0-100.0); RBC 3.29 mil/uL (4.50-6.00); RDW 15.9 % (10.5-14.5); WBC 6.8 thou/uL (4.0-11.0)
[2019-09-27 06:38] LABS: CALCIUM 7.7 mg/dL (8.5-10.1); POTASSIUM 3.8 mmol/L (3.5-5.1)
[2019-09-27 08:00] VITALS: BP 142/84
--- NOTE | 2019-09-27 10:48 | NUR ---
PT ADMITTED RELATED TO DECUBITUS ULCERS. CM REVIEWED CHART AND SPOKE WITH CARE TEAM. RITA CALLED AND SPOKE WITH PT'S SPOUSE THIS DAY. SHE INDICATED THAT PT HAD BEEN LIVING AT THEIR HOME AND HAD BEEN ON SERVICE WITH [facility]. SHE INDICATED THAT THEY HAVE ALL REQUIRED DME TO PROVIDE CARE TO PT THERE. SHE INDICATED THAT THEY HAD EVOKED HOSPICE SERVICES TO GET TREATMENT FOR PT'S WOUND BUT THAT THEY ANTICIPATE PT RETURNING BACK HOME ONTO [facility] ONCE MEDICALLY STABLE. RITA CALLED [facility] AND SPOKE WITH LOTTIE IN ADMISSIONS AND CONFIRMED THE ABOVE. THEY ARE ABLE TO ACCEPT BACK ON SERVICE UPON DC ORDERS WOULD NEED TO BE FAXED TO PHONE . PT WILL LIKELY NEED AMBULANCE TRANSPORT ARRANGED CM TO INITIATE [facility] FORM. PT TO HAVE DEBRIDEMENT TODAY. CM FOLLOWING REG[facility]ING DC PLANNING.
--- NOTE | 2019-09-27 11:08 | NUR ---
P.T. EVAL DEFERRED AT THIS TIME PER FAMILY EXPRESSED WISHES. PT DEPENDENT FOR ADLS AND FUNCTIONAL MOBILITY SINCE D/C FROM SNF TO HOME. PT RECEIVING HOSPICE SERVICES PRIOR TO [facility] ADMISSION AND PT'S , MARY, REQUESTS PT NOT RECEIVE THERAPY SERVICES DUE TO EXTENSIVE PAIN PT EXPERIENCES WITH MOBILITY. PLAN IS FOR RESUMPTION OF HOSPICE SERVICES UPON [facility] D/C.
--- NOTE | 2019-09-27 11:32 | NUR ---
ASSUMED CARE AT 0700. PT IS ALERT. STATES WHERE HE IS AT. IS SLOW TO ANSWER WITH FLAT AFFECT. VSSA/RA. C/O PAIN, PRN MEDS GIVEN ORDERED. PT IS NPO AWAITNG SURGERY FOR WOUNDS. GREGORIO IN PLACE, DRAINING APPROPRIATE. NO BM. PT HAS WOUNDS TO BILAT HIPS, HEELS. DRESSING IN PLACE WITH DRAINAGE. WAITING FOR SURGERY, WILL MONITOR DRAINAGE OUTPUT. PIV INFUSING WITHOUT ISSUES. PT IS BEDREST AND UNABLE TO TURN SELF. WILL MONITOR. CALL LIGHT LEFT IN PT HAND.
[2019-09-27 16:05] VITALS: BP 100/49
[2019-09-27 16:21] VITALS: BP 123/76
[2019-09-27 16:30] VITALS: BP 120/56
[2019-09-27 19:00] VITALS: BP 136/83
[2019-09-28 04:52] VITALS: BP 103/51
[2019-09-28 05:33] LABS: CALCIUM 7.7 mg/dL (8.5-10.1); CREATININE 0.8 mg/dL (0.7-1.3); POTASSIUM 4.3 mmol/L (3.5-5.1)
[2019-09-28 05:52] LABS: % SATURATION 21 % (20-39); IRON 21 ug/dL (65-175); TIBC 100 ug/dL (250-450)
[2019-09-28 06:18] LABS: ABSOLUTE RETIC COUNT 0.0423 10^6/uL; OBSERVED RETIC COUNT 1.31 % (0.6-2.6)
[2019-09-28 06:28] LABS: FERRITIN 1467 ng/mL (26-388)
[2019-09-28 06:49] LABS: HEMATOCRIT 24.9 % (42.0-52.0); HEMOGLOBIN 8.1 gm/dL (14.0-18.0); MCH 25.1 pg (26.0-34.0); MCHC 32.5 g/dL (28.0-37.0); MCV 77.1 fL (80.0-100.0); RBC 3.23 mil/uL (4.50-6.00); RDW 16.2 % (10.5-14.5); WBC 7.1 thou/uL (4.0-11.0)
--- NOTE | 2019-09-28 07:49 | NUR ---
Pt. rested quietly at intervals during the night when checked on during frequent rounds. Dressings to bilateral hips and coccyx are intact. Prafo boots in place to bilateral heels. Encouraged po fluids, but pt. refused. He denies pain. Pt. turned and repositioned during the shift. Bed alarm is on.
[2019-09-28 08:00] VITALS: BP 129/57
[2019-09-28 15:00] VITALS: BP 118/63
--- NOTE | 2019-09-28 15:22 | NUR ---
ASSUMED CARE AT 0700. PT ALERT AND ORIENTED. VSSA/RA. NO COMPLAINTS AT THIS TIME. CHANGED TO A CARB CONTROL DIET WITH A BLOOD SUGAR IN THE HIGH 400S. WILL CONTINUE TO MONITOR. PIV WITHOUT ISSUES, SALINE LOCKED. HEMOVAC IN PLACE, DRESSING TO LEFT HIP IS C/D/I. WBAT STATUS, PT UP TO CHAIR WITH SBA. WILL MONITOR
--- NOTE | 2019-09-28 17:20 | NUR ---
ASSUMED CARE AT 0700. PT IS ALERT, ORIENTED TO SELF AND PLACE. MINIMAL VERBALIZATION, BUT WILL ANSWER SOME QUESTIONS. VSSA/2L O2. RA THIS AFTERNOON. TOLERATING PUREED DIET, NEEDS SET UP AND FED. NO BM, GREGORIO DRAINING WELL. PIV INFUSING WITHOUT ISSUES. PAIN MEDS GIVEN PRN ORDERED. GIVEN PRIOR TO DRESSING CHANGES. PT TOLERATED DRESSING CHANGES. Q2 TURNS PT ALLOWS. BOOTS TO BILAT FEET. WILL CONTINUE TO MONITOR.
[2019-09-28 19:40] VITALS: BP 120/65
--- NOTE | 2019-09-29 03:53 | NUR ---
Pt. rested quietly at intervals during the night when checked on during frequent rounds. He offers no c/o pain when asked. Turned and repositioned during the shift. Pt. will attempt to strike out with his fists at times during personal care. Bed alarm is on.
[2019-09-29 04:10] VITALS: BP 118/61
[2019-09-29 08:08] VITALS: BP 138/70
[2019-09-29 15:32] VITALS: BP 127/65
--- NOTE | 2019-09-29 17:13 | NUR ---
PT IS AOX2, VSS, PAIN CONTROLLED WITH IV PAIN ANALGESIC. PT TURNED AND REPOSITIONED BY STAFF. PT MOANS AND CAN RESIST WHEN GETTING REPOSITIONED. PT APPETITE IS FAIR, SLEEPING QUIETLY, TOLERATES DRESSING CHANGE. FALL PRECAUTIONS IN PLACE. IV PATENT WITH FLUIDS RUNNING. WILL CONTINUE TO MONITOR.
[2019-09-29 20:03] VITALS: BP 145/63
--- NOTE | 2019-09-29 21:31 | NUR ---
SPOKE WITH (MARY) THIS EVENING. UPDATED ON PT CONDITION. WOULD LIKE TO VIST BUT CURRENT VISTATION POLICY DOES NOT PERMIT. WOULD LIKE TO BE NOTIFIED IF VISITATION POLICY CHANGES DURING THIS STAY.
[2019-09-30 05:24] VITALS: BP 125/63
[2019-09-30 06:08] LABS: HEMATOCRIT 22.6 % (42.0-52.0); HEMOGLOBIN 7.5 gm/dL (14.0-18.0); MCH 25.7 pg (26.0-34.0); MCHC 33.2 g/dL (28.0-37.0); MCV 77.4 fL (80.0-100.0); RBC 2.92 mil/uL (4.50-6.00); RDW 16.4 % (10.5-14.5); WBC 7.1 thou/uL (4.0-11.0)
[2019-09-30 06:14] LABS: CALCIUM 7.7 mg/dL (8.5-10.1); CREATININE 0.8 mg/dL (0.7-1.3); POTASSIUM 3.8 mmol/L (3.5-5.1)
[2019-09-30 08:00] VITALS: BP 137/72
--- NOTE | 2019-09-30 12:31 | O ---
[facility] [place] [address] OPERATIVE REPORT Name: MELITA JIANG Room #: 453-P ADM IN M.R.#: [id number] Admission: 09/26/19 Attend Phys: Duke Pinto MD Discharge: Date of : 47 Report #: [id number] THIS REPORT FOR: cc: FAM - Family physician unknown FAM - Family physician unknown Dontrell Nielsen MD ~ CC: OUMOU unknown Duke Pinto DATE OF SERVICE: 09/27/2019 PROCEDURES PERFORMED: 1. Sharp excisional debridement of left greater trochanteric decubitus pressure wound down to tendon using electrocautery. 2. Sharp excisional debridement of right greater trochanteric decubitus pressure wound down to tendon using electrocautery. PREOPERATIVE DIAGNOSIS: Bilateral greater trochanteric pressure wounds, unstageable. POSTOPERATIVE DIAGNOSES: 1. Left stage 4 greater trochanteric pressure wound down to tendon. 2. Right decubitus greater trochanteric pressure wound down to tendon, stage 4. SURGEON: Dr. Nielsen. CORPORATE DEVELOPMENT OFFICER: None. ANESTHESIA: General. ESTIMATED BLOOD LOSS: Less than 5 mL. URINE OUTPUT: Not measured. COMPLICATIONS: None. FINDINGS: 1. Left greater trochanteric wound: 16 cm x 8.5 cm x 2 cm, stage 4, down to tendon. Wound was purulent and necrotic with a large amount of purulence release. 2. Right greater trochanteric pressure wound: 9 cm x 5 cm x 4.5 cm deep, stage 4, down to tendon. SPECIMENS: 1. Left decubitus ulcer. 2. Right decubitus ulcer. [facility] [address] [place] [address] OPERATIVE REPORT Name: MELITA JIANG Jenelle Room #: 453-P [facility] IN [facility]#: [id number] Admission: 09/26/19 Attend Phys: Duke Pinto MD Discharge: Date of : 47 Report #: [id number] INDICATIONS FOR PROCEDURE: The patient is a pleasant 74-year-old gentleman with pressure wounds that are draining purulence and black in appearance. He consented for surgery as well as his sister. DESCRIPTION OF PROCEDURE: After informed consent was obtained as above, the patient was taken to the operating room and placed in the supine position. General anesthesia was induced. His left hip was prepped and draped in the usual sterile fashion. A timeout was performed. The necrotic tissue was excised out using electrocautery. The dissection carried all the way deep down to tendon. All nonviable tissue was removed. The pulse lavage device was used to irrigate the wound with 3 liters of warm irrigation. The wound was then packed with Kerlix soaked in Dakin's. Next, the right greater trochanteric wound was prepped and draped in the usual sterile fashion. Electrocautery was used to excise all necrotic wound tissue. The dissection was carried deep down to the tendon overlying the greater trochanter. The necrotic tissue was debrided entirely. Pulse lavage was used to irrigate the wound using copious amounts of warm irrigation. Hemostasis was obtained on both sides. Both wounds were packed with Kerlix soaked in Dakin's. The patient tolerated the procedure well. There were no adverse events throughout the course of procedure. <ELECTRONICALLY SIGNED> By: Dontrell Nielsen MD 09/30/19 1231 1650 1713 Dontrell Nielsen MD /nt
[2019-09-30 15:00] VITALS: BP 152/76
--- NOTE | 2019-09-30 19:29 | HC ---
[facility] [place] [address] CONSULTATION Name: MELITA JIANG Room #: 453-P [facility] IN [facility].#: [id number] Admission: 09/26/19 Attend Phys: Duke Pinto MD Discharge: Date of : 47 Report #: [id number] THIS REPORT FOR: cc: FAM - Family physician unknown OUMOU - Family physician unknown Blane Patterson MD ~ CC: OUMOU unknown Duke Pinto DATE OF SERVICE: 09/27/2019 INFECTIOUS DISEASE CONSULTATION. REASON FOR CONSULTATION: I was asked to evaluate concerning pelvic decubiti infection. HISTORY OF PRESENT ILLNESS: A 74-year-old with history of dementia, hypertension, who was on hospice. He developed purulent drainage from his left gluteus pressure wound. Attempted treatment outpatient with wound care and Bactrim. He was not improving; therefore, family decided to bring him back for further intervention. No fever, chills or sweats. The patient could not give me much history. He was taken to surgery today for surgical debridement and I am awaiting operative report. He has had a large amount of purulent drainage from the buttock region. ALLERGIES: None known. MEDICATIONS: Included Tylenol, Seroquel, Lopressor, Prinivil, Proscar, Bactrim, Flomax, Norvasc, Colace, now on vancomycin and Zosyn. PAST MEDICAL HISTORY: Stroke, congestive heart failure, gout, hypertension, tobacco use, dementia, alcoholic cardiomyopathy, cholelithiasis, debilitated state with decubitus ulcers. FAMILY HISTORY: No tuberculosis reported. SOCIAL HISTORY: Past smoker, past alcohol use. REVIEW OF SYSTEMS: The patient unable to give any further details of his 14-point review of system. PHYSICAL EXAMINATION: VITAL SIGNS: Afebrile and hemodynamically stable. GENERAL: He was alert and reasonably cooperative. He had a peripheral IV in place. Left buttock wound was dressed and dry. He was in no acute distress. EYES: Without scleral icterus. [facility] [address] [place] [address] CONSULTATION Name: MELITA JIANG Room #: 453-[facility].#: [id number] Admission: 09/26/19 Attend Phys: Duke Pinto MD Discharge: Date of : 47 Report #: [id number] MOUTH: Without mucositis. NECK: Supple. LUNGS: Clear to auscultation. HEART: Regular, without murmur. ABDOMEN: Soft and nontender with no hepatosplenomegaly or mass. EXTREMITIES: Left lower extremity with 1+ edema. LABORATORY STUDIES: Reviewed. Microbiology reviewed. IMPRESSION: 1. Left gluteus pressure wound with secondary infection, polymicrobial abscess with growth of corynebacterium and Proteus so far. 2. Hypertension. 3. Seizure disorder. 4. Dementia. 5. Anemia. RECOMMENDATIONS: We will continue broad antibiotic coverage for healthcare-associated organisms, pending culture results. We will await operative note and decide duration of antibiotic therapy. <ELECTRONICALLY SIGNED> By: Blane Patterson MD 09/30/19 1929 [id number] 04 Blane Patterson MD /nt
--- NOTE | 2019-09-30 19:33 | NUR ---
Assumed pt care at 7am.Pt in bed most of the time.Repositioned q2h for comfort.Pt tolerated meds and diet.Dr Pinto here,order noted.Drsg change done to sacral and bilateral hip as ordered.Piv infusing as ordered.No verbal c/o. Will continue to monitor.
[2019-10-01 00:48] VITALS: BP 135/39
--- NOTE | 2019-10-01 02:36 | NUR ---
ASSUMED CARE OF PT AT 1900HRS. PT IS AOX1 AND NEEDS MUST BE ANTICIPATED. FALL PRECAUTION IN PLACE. PT TURNED Q2-3H. PT'S LBM NOTED TO BE 09/26/19. LAXATIVES NEEDED TO FACILITATE A BM. WOUND DRESSING CHANGED PER ORDER. ABX TREATMENT CONTINUED. PT WAS ABLE TO GET COMFORTABLE AND SLEEP PART OF THE SHIFT. PT HAD A TEMP OF 99.7 THIS SHIFT. OTHER VSS AND NO S/S OF ACUTE DISTRESS. WILL CONTINUE TO MONITOR.
[2019-10-01 07:07] VITALS: BP 140/58
[2019-10-01 15:02] VITALS: BP 152/82
[2019-10-01 15:05] VITALS: BP 124/65
--- NOTE | 2019-10-01 18:56 | NUR ---
Assumed pt care at 7am.Pt in bed sleeping on and off.Repositioned for comfort. Pt was depressed and not talking much today.Rn asked pt if needed anything but refused to talk.Tank Crewmember assisted pt with feeding at all meals.Fair appetite noted. Family updated about pt status.Later this evening,pt temp was 100.0 tylenol po given without relief.Dr Pinto notified but no order noted but wanted pt to be monitor.Drsg change done to sacral and bilat. hips as ordered.Will continue to monitor.
[2019-10-01 18:59] VITALS: BP 157/92
[2019-10-02 05:07] VITALS: BP 116/58
--- NOTE | 2019-10-02 05:08 | NUR ---
ASSUMED CARE OF PT AT 1900HRS. FALL PRECAUTION IN PLACE. PT TURNED Q2-3H. ABX TREATMENT CONTINUED. GREGORIO IN PLACE AND PATIENT. DRESSING CHANGED. PT HAS A LOW GRADE TEMP. AWARE. OTHER VSS. PT WAS ABLE TO GET COMFORTABLE AND SLEEP PART OF THE SHIFT. WILL CONTINUE TO MONITOR.
[2019-10-02 05:54] LABS: HEMATOCRIT 21.3 % (42.0-52.0); MCH 25.3 pg (26.0-34.0); MCHC 32.8 g/dL (28.0-37.0); MCV 77.1 fL (80.0-100.0); RBC 2.76 mil/uL (4.50-6.00); RDW 16.4 % (10.5-14.5); WBC 10.1 thou/uL (4.0-11.0)
[2019-10-02 06:00] LABS: CALCIUM 7.4 mg/dL (8.5-10.1); CREATININE 0.8 mg/dL (0.7-1.3); POTASSIUM 3.5 mmol/L (3.5-5.1)
[2019-10-02 06:56] VITALS: BP 129/62
--- NOTE | 2019-10-02 11:11 | NUR ---
FAXED CLINICAL UPDATE TO [facility] SPOKE WITH SHIRLEY IN ADM SHE RECEIVED UPDATE. DP TO FOLLOW.
--- NOTE | 2019-10-02 14:40 | NUR ---
CARE TEAM HAD MENIONED THAT PT MAY NEED PROLONGED IV ABX. CM CALLED AND SPOKE WITH PT'S AND SHE INDICATED THAT IF PT COULDN'T RECIEVE ABX THROUGH [facility] AT HOME AND THAT HE NEEDED POST ACUTE CARE STAY SHE WOULD BE INTERESTED IN REFERRAL BEING SENT TO [facility]. CM HAD CLINICAL UPDATE SENT TO [facility] RECIEVED REVOCATION FORMS, AND ASKED IF THEY WOULD PROVIE ABX UPON DC THEY INDICATED THAT THEY HAVE PROVIDED ORAL ABX BUT NOT USUALLY IV. CARE TEAM INDICATED THEY WERE GOING TO ORDER A PALLIATIVE CARE CONSULT. CM FOLLOWING REGARDING DC PLANNING.
[2019-10-02 15:11] VITALS: BP 140/71
--- NOTE | 2019-10-02 16:08 | PATH ---
[facility] [address] [place] [address] PATHOLOGY RPT PROCEDURE Name: DAVID JIANGKristy Almanzar Room #: 453-P ADM IN M.R.#: [id number] Admission: 09/26/19 Date of : 49 Discharge: Report #: [id number] Path Case #: [id number] [facility] Accession Number: [id number] . 01 Material submitted: . PART A: thigh - TISSUE LEFT GREATER TROCHANTER. Modifiers: left PART B: thigh - TISSUE RIGHT GREATER TROCHANTER. Modifiers: right . 01 Clinical history: . Bilateral trochanteric wounds . 02 Diagnosis: A. Tissue left greater trochanter, debridement: - Ulceration, marked acute inflammation as well as fibrinoid degeneration, consistent with debridement tissue. . B. Tissue right greater trochanter, debridement: - Ulceration, marked acute inflammation as well as fibrinoid degeneration, consistent with debridement tissue. (IUV/db; 10/02/2019) LBQ 10/02/2019 1422 Local . 02 Electronically signed: . Daina iVdal MD, Pathologist NPI- [id number] . 01 Gross description: . A. The specimen is received in formalin, labeled "Brown, Melita, left greater trochanter" and consists of 2 segments of necrotic green black skin and soft tissue measuring 8.7 x 7.0 x 2.5 cm. Floor Sweeper sections are submitted in A1. . B. The specimen is received in formalin, labeled "Brown, Melita, right greater trochanter" and consists of a necrotic segment of carlos green to black skin and underlying tissue measuring 7.4 x 6.1 x 3.0 cm. Floor Sweeper sections are submitted in B1. (SDY; 10/01/2019) SYU/SYU 10/01/2019 1135 Local . 02 Pathologist provided ICD-10: L89.326 . 02 CPT . 566959, [id number] Specimen Comment: A courtesy copy of this report has been sent to [phone], [phone] Specimen Comment: [phone] [address] PATHOLOGY RPT PROCEDURE Name: MELITA JIANG Jenelle Room #: 453-P [facility] IN M.R.#: [id number] Admission: 09/26/19 Date of : 49 Discharge: Report #: [id number] Path Case #: [id number] Specimen Comment: Report sent to / DR BROWN Performed at: [address] [facility] [address], [place], [place] [id number] MD Danny Ruby MD Phone: [phone] Performed at: [address] [id number] MD Daina Vidal MD Phone: [phone]
[2019-10-02 19:25] VITALS: BP 161/82
--- NOTE | 2019-10-02 19:55 | NUR ---
PT A&O TO SELF, VSS, GENERALIZED PAIN. FENTANYL GIVEN FOR PAIN. ALL WOUND CARES DONE. IV LEFT FA WITH IV FLUID RUNNING. Q2 TURNS COMPLETED TODAY. NO SIGNS OF DISTRESS. WILL CONTINUE TO MONITOR.
--- NOTE | 2019-10-03 00:29 | NUR ---
ASSUMED CARE ON 10/02/19 @ 1915, IN BED IV SITE IN LEFT FORE ARM N.S RUNNING @ 75 CC/HOUR, GREGORIO CATHETER DRAINING YELLOW URINE DEPENDENT TO GRAVITY. ASSESSMENT S1S2 NOTED, LUNG SOUNDS DIMINISHED TO LOWER TRAVIS, ABD SOUNDS AUSCULTATED. DENIES PAIN.
[2019-10-03 00:36] VITALS: BP 161/82
[2019-10-03 06:15] VITALS: BP 156/80
[2019-10-03 07:19] VITALS: BP 170/87
[2019-10-03 09:09] LABS: HEMATOCRIT 23.6 % (42.0-52.0); HEMOGLOBIN 7.7 gm/dL (14.0-18.0); MCH 25.2 pg (26.0-34.0); MCHC 32.6 g/dL (28.0-37.0); MCV 77.3 fL (80.0-100.0); RBC 3.05 mil/uL (4.50-6.00); WBC 7.6 thou/uL (4.0-11.0)
[2019-10-03 09:20] LABS: CALCIUM 8.2 mg/dL (8.5-10.1); CREATININE 0.8 mg/dL (0.7-1.3); POTASSIUM 3.6 mmol/L (3.5-5.1)
--- NOTE | 2019-10-03 09:25 | HC ---
[facility] [place] [address] CONSULTATION Name: MELITA JIANG Room #: 453-P [facility] IN [facility].#: [id number] Admission: 09/26/19 Attend Phys: Duke Pinto MD Discharge: Date of : 47 Report #: [id number] THIS REPORT FOR: cc: OUMOU - Family physician unknown OUMOU - Family physician unknown Erick Rey MD ~ CC: OUMOU unknown Duke Pinto DATE OF SERVICE: 09/27/2019 WOUND CARE CONSULTATION. REQUESTING PHYSICIAN: Duke Pinto MD CHIEF COMPLAINT: Multiple decubitus ulcers. HISTORY OF PRESENT ILLNESS: This is a 74-year-old black male with a history of dementia who was recently hospitalized for urinary tract infection and a small-bowel obstruction, which resolved and the patient was sent back to his facility on hospice at that time. The patient subsequently developed multiple decubitus ulcers in the bilateral greater trochanteric region as well as coccygeal region and bilateral heels. The greater trochanteric ulcerations have been progressive and started having significant amount of foul drainage, specifically in the left wound, which prompted the custodial to send the patient back to the hospital. Family has rescinded the hospice orders and want aggressive care at this time. We have been asked to follow the patient for these wounds. General Surgery has already been consulted for debridement. The patient himself is nonverbal. PAST MEDICAL HISTORY: Significant for previous CVA in 2004, chronic dementia, congestive heart failure, hypertension, alcoholic cardiomyopathy, and previous history of decubitus ulcers. CURRENT MEDICATIONS: Multiple. DRUG ALLERGIES: None. SOCIAL HISTORY: The patient has a [id number] history of smoking, quit greater than a year ago; history of previous alcohol use. Currently resides in a facility. FAMILY HISTORY AND REVIEW OF SYSTEMS: Unobtainable because of the patient's demented state. PHYSICAL EXAMINATION: [facility] [address] [place] [address] CONSULTATION Name: MELITA JIANG Room #: 453-P [facility]#: [id number] Admission: 09/26/19 Attend Phys: Duke Pinto MD Discharge: Date of : 49 Report #: [id number] VITAL SIGNS: Temperature 37.2, pulse 96, respirations 18, BP 144/87. GENERAL: This is an awake, but not alert or communicative black male who is in no acute distress, but appears chronically ill. HEENT: Normocephalic, atraumatic. Mucous membranes are dry. Pupils are round. NECK: Supple, nontender. LUNGS: Clear. HEART: Regular. ABDOMEN: Soft, nontender. EXTREMITIES: The patient is somewhat contracted in his extremities. Distal pulses are 1+. Evaluation of right heel reveals a deep tissue injury with an intact ecchymotic region with no drainage and a small stage 2 decubitus ulcer of the left heel, which is fragile dermal tissue. No drainage. Evaluation of bilateral greater trochanteric region reveals unstageable decubitus ulcer in the right hip with black eschar with minimal scant drainage with foul odor. On the left greater trochanteric region is a large black eschar with a significant amount of foul purulent drainage consistent with stage 4 decubitus ulcer. There is no evidence of bone exposed on either one of these ulcerations; however, it is palpable on the left hip. There is also a moderate sized stage 3 decubitus ulcer in the sacrococcygeal region, which is a mix of 25% granulation, 75% yellowish fibrinous slough but no significant undermining or tunneling. NEUROLOGIC: The patient is severely demented with contractures. LABORATORY DATA: White count 6.8, hemoglobin 8.3. BUN 10, creatinine 1.0, lactic acid 1.4. C-reactive protein is 19.3, albumin 2.9. IMPRESSION: 1. Stage 4 decubitus ulcer, left greater trochanteric region, which is overtly infected. 2. Unstageable decubitus ulcer, right greater trochanteric region. 3. Stage 3 decubitus ulcer, sacrococcygeal region. 4. Deep tissue injury to the right lateral heel. 5. Stage 2 decubitus ulcer, left lateral heel. 6. Advanced dementia. 7. Protein-calorie malnutrition - severe, with an albumin of 2.9. 8. Generalized debility. PLAN: At this time, General surgery has taken the patient to the operating room later today for debridement. If family is continuing to want aggressive care, the patient most likely will require PEG tube placement and diverting colostomy at some point in time. We will continue with IV antibiotics. We will continue all other current medications. The patient will be placed on low air loss [address] [address] CONSULTATION Name: MELITA JIANG Jenelle Room #: 453-P [facility] IN M.R.#: [id number] Admission: 09/26/19 Attend Phys: Duke Pinto MD Discharge: Date of : 47 Report #: [id number] mattress, having turned every 2 hours. We will put the patient in heel protection boots as well. We will continue to follow the patient. <ELECTRONICALLY SIGNED> By: Erick Rey MD 10/03/19 0925 1205 1837 Erick Rey MD /nt
--- NOTE | 2019-10-03 11:52 | NUR ---
PATIENTS NOTIFICATION OF TERMINATION OF HOSPICE BENEFITS SIGNED AND SCANNED INTO PERCEPTIVE CONTENT. ALL INFORMATION IN BARNOTES WELL. C
[2019-10-03 15:30] VITALS: BP 143/81
--- NOTE | 2019-10-03 16:08 | NUR ---
HOSPITALIST CONSULTED PALLIATIVE/HOSPICE PHYSICIAN TO CONSULT AND SPOKE WITH PT'S SPOUSE MARY REGARDING GOALS OF CARE. CM TO FOLLOW UP WITH HER AFTER DISCUSSION TO FACILITATE DC NEEDS.
--- NOTE | 2019-10-03 17:32 | NUR ---
PT AOX1, PAIN CONTROLLED WITH FENTANYL IV, DRESSINGS CHANGED PER PROTOCOL. PT TURNED Q2 HOUR. PT IV IS PATENT ON LEFT FA, WITH FLUIDS RUNNING. APPETITE IS FAIR. WILL CONTINUE TO MONITOR.
[2019-10-03 20:15] VITALS: BP 144/81
[2019-10-04 04:04] LABS: RBC 2.5 mil/uL (4.50-6.00)
[2019-10-04 04:07] LABS: MCH 25.5 pg (26.0-34.0); MCHC 33.1 g/dL (28.0-37.0); WBC 6.3 thou/uL (4.0-11.0)
[2019-10-04 04:09] LABS: CALCIUM 7.6 mg/dL (8.5-10.1); CREATININE 0.7 mg/dL (0.7-1.3); MAGNESIUM 1.8 mg/dL (1.8-2.4); POTASSIUM 3.4 mmol/L (3.5-5.1)
[2019-10-04 04:27] LABS: HEMATOCRIT 19.3 % (42.0-52.0); HEMOGLOBIN 6.4 gm/dL (14.0-18.0)
--- NOTE | 2019-10-04 06:00 | NUR ---
RECIEVED CARE OF THIS PATIENT AT 1900. PATIENT ORIENTED TO SELF ONLY. REMAINS ON BEDREST. FEEDER. DRESSINGS ON LISET HIPS CHANGED. ALL OTHER DRESSINGS INTACT. IV LFA WITH FLUIDS INFUSING. DENIES PAIN. SLEPT MOST OF NIGHT.
[2019-10-04 07:59] VITALS: BP 143/83
--- NOTE | 2019-10-04 12:22 | NUR ---
DR. NÚÑEZ SPOKE WITH PT'S SPOUSE AND THEY ASKED THAT REFERRAL BE SENT TO HOSPICE FOR POSSIBLE HOUSE ADMISSION AND TO [facility] FOR POSSIBLE LTC WITH HOSPICE. CM SENT REFERRALS TO BOTH. CM CALLED AND NOIFIED HOSPICE TO LOOK OUT FOR REFERRAL.
[2019-10-04 14:28] VITALS: BP 156/88
--- NOTE | 2019-10-04 16:24 | NUR ---
ASSUMED CARE AT 0700. PT ALERT BUT ONLY ORIENTED TO SELF. NON VERBAL MOSTLY, DOES RESPOND ON OCCASION. OTHERWISE, WILL FOLLOW WITH EYES, AND MOVE ARMS. VSSA/RA. TOLERATING A PUREED DIET, NEEDING FED BY STAFF. GREGORIO IN PLACE. NO BM OF YET. LEFT ARM SWOLLEN THIS AM, REMOVED PIV. KEEP ELEVATED. 22G STARTED IN RIGHT FOREARM THIS AM. PIV INFUSING WITHOUT COMPLICATIONS. DRESSING TO BILAT HIPS, BILAT HEELS, AND COCCYX C/D/I. SPOKE WITH PT THIS AM IN REGARDS OF BLOOD TRANSFUSION. SHE CONSENTED, HOWEVER LATER AFTER TALKING TO PALLIATIVE DR, HAS SINCE DECIDED AGAINST IT. PLAN IS TO MOVE PT TO HOSPICE HOUSE OR SOMEWHERE WHEN ACCEPTED. WILL CONTINUE TO MONITOR
[2019-10-04 19:27] VITALS: BP 140/78
--- NOTE | 2019-10-05 04:01 | NUR ---
Pt. rested quietly during the night when checked on during frequent rounds. He is oriented to self and denies any c/o pain. Dressing to bilateral hips and heels are intact. Turned and repositioned. Bed alarm is on.
[2019-10-05 07:24] VITALS: BP 139/72
[2019-10-05 15:20] VITALS: BP 114/68
--- NOTE | 2019-10-05 18:27 | NUR ---
PT IS AOX3, VSS, NO C/O PAIN AT THIS TIME. PT IS EATING HIS MEALS WELL WITH ASSISTANCE, TOLERATED DRESSING CHANGE. PT RECEIVED PO PAIN ANALGESIC. PT TURNED Q2HRS. IV PATENT ON RIGHT FA. FALL PRECAUTIONS IN PLACE. WILL CONTINUE TO MONITOR.
[2019-10-05 19:11] VITALS: BP 131/70
--- NOTE | 2019-10-06 06:13 | NUR ---
Pt. rested quietly at intervals during the night when checked on during frequent rounds. Treatment done to bilateral hip wounds and coccyx wound as ordered (see poc). Pt. medicated with ivp pain med (see emar) prior to treatment. Turned and repositioned. Prafo boots in place to bilateral feet. Bed alarm is on.
[2019-10-06 08:00] VITALS: BP 152/73
--- NOTE | 2019-10-06 16:12 | NUR ---
Assumed patient care at 0715. Patient is alert to self only. LSCTA, BS x's 4, abdomen is soft and non-tender. Patient has a [place] Cath with good output. IV in right forearn with NS at 75cc/hr. Prafo boots are in place. Dr Amador here, assisted with wound care to left hip. Patient to go to [facility] when a bed is available. Per JUSTA, Charge Nurse at [facility], "patient needs to be re-evaluted because he did not meet criteria on last visit." Rebekah with [facility] called to give this nurse the same message. Discussed this with Susanna, Director of Case Management. Will report to on-coming nurse and continue to monitor.
[2019-10-06 19:28] VITALS: BP 142/66
--- NOTE | 2019-10-07 03:40 | NUR ---
ASSUMED PT CARE AROUND 191. ALERT AND AWAKE. VSS. NO S/S ACUTE DISTRESS NOTED OR REPORTED AT THIS TIME. WILL CONT TO MONITOR FOR ANY CHANGES IN CONDITION.
[2019-10-07 07:17] VITALS: BP 164/89
--- NOTE | 2019-10-07 10:09 | NUR ---
Followup: chart reviewed, and noted hospice house consult pending. Will defer further nutrition reassessment unless consulted.
--- NOTE | 2019-10-07 15:41 | NUR ---
Assumed patient care at 0715. Vital sins stable, LSCTA, BS x's 4, ABD soft and non-tender. Dressing to left hip is clean, dry and intact. Patient takes his medications crushed in applesauce. He stated "good morning" back to this nurse. IV continues in right forearm with Normal Saline at 75cc/hr. Patient was given Hydrocodone with am medications. Medication effective. Will continue to monitor.
[2019-10-07 15:42] VITALS: BP 158/95
--- NOTE | 2019-10-07 16:46 | NUR ---
FAXED REFERRAL TO [facility] BILL SPOKE WITH SHAKIRA IN ADM SHE RECEIVED REFERRAL AND WANTED TO KNOW WHAT HOSPICE PT WAS ON SERVICE PRIOR TO ADM HE WAS ON SERVICE WITH [facility] SHE WILL REVIEW REFERRAL. FAXED REFERRAL TO [facility] RECEIVED CONFIRMATION AND SPOKE WITH LALA IN ADM SHE WILL REVIEW. DP TO FOLLOW.
[2019-10-07 19:53] VITALS: BP 148/66
--- NOTE | 2019-10-08 07:22 | NUR ---
ASSUMED PT CARE AROUND 1930. ALERT AND AWAKE. FREQUENT CHECKS RENDERED TO ACCOMDATE NEEDS. NO S/S ACUTE DISTRESS NOTED OR REPORTED AT THIS TIME. CARE TRANSFERRED TO INCOMING RN AT THIS TIME.
[2019-10-08 07:44] VITALS: BP 142/75
--- NOTE | 2019-10-08 10:12 | NUR ---
FROM YESERDAY HAD BEEN ENERED ON WRONG PT: [facility] INDICATED THEY WEREN'T TAKING ADMISSIONS AT THIS TIME. CM CALLED AND NOTIFIED PT'S SPOUSE AND SHE ASKED THAT REFERRALS BE SENT TO [facility] AND [facility] FOR REVIEW FOR POSSIBLE ADMISSION LTC [facility]. CM TO FOLLOW INDICATED WITH DC PLANNING. [facility] INDICATED THEY AREN'T ABLE TO ACCEPT PT FOR ADMISSION AWIATING RESPONSE FROM [facility]. CM TO FOLLOW INDICATED WITH DC PLANNING.
--- NOTE | 2019-10-08 16:02 | NUR ---
CM SPOKE WITH PT'S AND INDICATED THAT [facility] WITH ADMISSIONS WOULD CALL TO DISCUSS PAYER SOURCE WITH HER SHORTLY. P'S SPOUSE INDICATED THAT SHE WAS PLANNING TO GO TO THE [facility] OFFICE [facility] [employer]P MARKETING & COMMUNICATIONS AT [employer] TO COMPLETE MEDICAID APPLICATION AND DEVISION OF ASSETS. SPOUSE INDICATED SHE WOULD WOULD GO TOMORROW. CM ALSO SENT FACESHEET TO [facility] FOR THE TO EACH OUT TO ASSIST THEY CAN. REFERRALS TO BE SENT TO [facility] FOR REVIEW WELL.
--- NOTE | 2019-10-08 16:27 | NUR ---
FAXED FACE SHEET TO IRVIN AT [facility] RECEIVED CONFIRMATION TO HELP WITH MEDICAID APPLICATION FOR SECONDARY INSURANCE.
--- NOTE | 2019-10-08 16:40 | NUR ---
FAXED REFERRAL TO [facility] RECEIVED CONFIRMATION AND LEFT MSG WITH YOLANDA IN ADM WILL F/U WITH FACILITY IN THE AM. FAXED REFERRAL TO [facility] RECEIVED CONFIRMATION AND WILL F/U WITH FACILITY IN THE AM THE ADM. OFFICE IS OUT FOR THE DAY. DP TO FOLLOW.
[2019-10-08 17:09] VITALS: BP 153/78
--- NOTE | 2019-10-08 19:10 | NUR ---
Assumed pt care this am , pt is a total care and at times would respond to touch or when his name is called mostly non verbal. FC draning light yellow urine. Medications are crushed and given with pudding or apple sauce. Q2 turns done through out the shift. Appetite is poor, abdomen is soft with no distention noted, no BM for this shift. POC followed with no signs or verbalizations of distress. Endorsedto the night nurse.
[2019-10-08 19:40] VITALS: BP 130/57
[2019-10-08 19:54] VITALS: BP 130/57
--- NOTE | 2019-10-09 05:54 | NUR ---
ASSUMED PT CARE AROUND 191. ALERT DOES NO FOLLOW ANY VERBAL COMMANDS. WOUND CARE COMPLETED. NO S/S ACUTE DISTRESS NOTED OR REPORTED AT THIS TIME. WILL CONT TO MONITOR FOR ANY CHANGES IN CONDITION.
[2019-10-09 07:16] VITALS: BP 132/70
--- NOTE | 2019-10-09 14:40 | NUR ---
PT IS AOX2, VSS, NO S/S OF DISTESS AT THIS TIME. PT DENIES PAIN, WILL GET PAIN ANALGESIC WITH DRESSING CHANGE. FALL PRECAUTIONS IN PLACE. TOLERATING DIET WELL, IV PATIENT, WILL CONTINUE TO MONITOR.
[2019-10-09 15:04] VITALS: BP 153/82
--- NOTE | 2019-10-09 15:25 | NUR ---
CM ATTEMPTED NUMEROUS PHONE CALLS TO [facility] THIS DAY WITH NO RESPONSE. CM CALLED AND SPOKE WITH PT'S SPOUSE AND INDICATED THAT WE STILL HADN'T HEARD BACK FROM [facility] OR [facility]. CM ASKED THAT WE BE ABLE TO SEND REFERRALS TO THE [facility] OR [facility] SHE INDICATED WE COULD. PT'S SPOUSE HAD ATTEMPTED TO GO TO [facility] THIS AM BUT THEY WERE CLOSED. CM REACHED OUT TO IVRIN AND ASKED THAT SHE REACH OUT TO HER MITCH TO ASSIST WITH MEDICAID APPLICAITON. CM TO FOLLOW INDICATED WITH DC PLANNING.
[2019-10-09 19:30] VITALS: BP 141/70
--- NOTE | 2019-10-10 04:18 | NUR ---
PROGRESS PT ALERT BUT DROWSY ABLE TO ANSWER NAME AND . RATING PAIN A 9 FENTANYL GIVEN ORDERED. WOUND TO RIGHT HIP CHANGED DRESSING WAS SATURATED REMAINING DRSG'S REMAIN C/D/I. REPOSITION Q2HRS, IVF'S IV ANTIBIOTICS ADMINISTERED ORDERED. VSS, CONTINUE PROFO BOOTS LOW AIRLOSS MATTRESS AND TURNS TO PREVENT FURTHER BREAKDOWN.
[2019-10-10 07:16] VITALS: BP 151/77
--- NOTE | 2019-10-10 15:11 | NUR ---
CM FOLLOWED UP WITH PT'S SPOUSE THIS AFTERNOON AND INDICATED THAT WE STILL HADN'T HE[facility] BACK FROM [facility] OR [facility] AND ASKED IF REFERRALS COULD BE SENT TO [facility], [facility], AND [facility] THEY WERE NEXT CLOSEST TO HER IN [facility]. SHE INDICATED THAT WAS FINE. SHE INDICATED THAT [facility] HAD REACHED OUT TO HER TO ASSIST IN COMPLETING MEDICAID APPLICATION. CM TO FOLLOW UP WITH [facility] TO OBTAIN WATER METER INSTALLER OR COMPLETED [place]. CM TO FOLLOW INDICATED WITH TRYING TO FINE FACILITY TO ACCEPT PT.
[2019-10-10 15:24] VITALS: BP 130/73
--- NOTE | 2019-10-10 16:06 | NUR ---
PT IS AOX2, VSS, PAIN CONTROLLED WITH ORAL ANALGESIC. PT HAS NO SIGNS OF DISTRESS, HE IS ABLE TO LET NURSE KNOW IF HE IS IN PAIN. TURNED Q 2HRS, FALL PRECAUTIONS IN PLACE RAJAN CONTINUE TO MONITOR.
--- NOTE | 2019-10-10 16:48 | NUR ---
FAXED CLINICAL UPDATE TO [facility] RECEIVED CONFIRMATION AND LEFT MSG WITH YOLANDA IN ADM. DP TO FOLLOW.
--- NOTE | 2019-10-10 17:01 | NUR ---
FAXED REFERRAL TO [facility] SPOKE WITH [facility]M. [facility] AND THEY WILL NOT BE ABLE TO ACCEPT PT THEY ARE ONLY ACCEPTING 1 NEW PT A DAY AND THEY ARE BOOKED UP FOR THE NEXT COUPLE OF WEEKS. [facility]ED REFERRAL TO [facility] RECEIVED CONFIRMATION AND WILL F/U WITH ADM. IN THE MORNING THEY ARE GONE FOR THE DAY. FAXED REFERRAL TO [facility] RECEIVED CONFIRMATION AND ADM. IS GONE FOR THE DAY WILL F/U WITH THEM IN THE MORNING.
[2019-10-10 19:31] VITALS: BP 160/85
[2019-10-11 07:32] VITALS: BP 157/83
--- NOTE | 2019-10-11 07:44 | NUR ---
PROGRESS PT ALERT ANSWERS YES OR NO TO QUESTIONS. DRINKS WELL HONEY THICK WHEN OFFERED, GREGORIO DRAINING ELIZABETH COLORED URINE IN ADEQUATE AMOUNTS. NO BM THIS SHIFT BS POSITIVE ABDOMEN SOFT AND NON DISTENDED, MIRALAX, DOCUSATE/SENNA GIVEN IVF'S CONTINUE. WOUND CARE TO BOTH HIPS WET TO DRY WOUND BEDS BEEFY RED WITH GOOD GRANULATION TISSUE NO INFECTIOUS LOOKING DRAINAGE AND NO ODOR DETECTED. WOUND TO SACRUM PALE AND MOIST HAS MEPILEX IN PLACE AND BILATERAL LOWER LEGS DRSGS REMAIN C/D/I. VSS PT REPOSITIONED FREQUENTLY THROUGHOUT NIGHT CONTINUE POC.
--- NOTE | 2019-10-11 11:27 | NUR ---
FAXED REFERRAL TO [facility] RECEIVED CONFIRMATION AND LEFT MSG WITH TRAV IN ADM.
--- NOTE | 2019-10-11 16:22 | NUR ---
ASSUMED CARE AT 0700. PT DOESN'T RESPOND TO SOME QUESTIONS. BUT DOES FOLLOW WITH HIS EYES AND WILL ANSWER AT TIMES. VSSA/RA. TOLERATING HIS DIET. NO BM TODAY. GREGORIO DRAINING. PIV CAME OUT TODAY, NEW ONE PLACED WITHOUT ISSUES. IVF INFUSING. WOUND CARE DONE AT START OF SHIFT. UPDATE GIVEN TO PT . WILL CONTINUE TO MONITOR
--- NOTE | 2019-10-11 16:35 | NUR ---
STILL LOOKING FOR LTC [place] MEDICA[place] PENDING WITH HOSPCIE PLACEMENT AT A FACILITY
[2019-10-11 21:21] VITALS: BP 141/75
--- NOTE | 2019-10-12 03:05 | NUR ---
PATIENT ALERT AND ORIENTED X1-2. DENIES PAIN. IVF INFUSING W/O COMPLICATION. DRESSINGS DRY AND INTACT. GREGORIO TO D/D WITH YELLOW URINE. CRUSHED MEDS AND MIXED WITH APPLESAUCE, PATIENT TOLERATED WELL. RESTING QUIETLY WILL MONITOR.
[2019-10-12 07:38] VITALS: BP 146/71
--- NOTE | 2019-10-12 14:29 | NUR ---
Received awake on bed. Due medications given as prescribed, crushed medications and mixed with apple sauce. On room air. Vital signs stable. On comfort care. With wounds on his hips, heel and sacrum- dressing in place and to be changed today. On pureed diet- assisted in eating and drinking. With NS at 75cc/hr, infusing well at R FA; on IV antibiotics as well. Turned on his sides. With wright in place- output measured and recorded accordingly. Kept comfortable. Mouth care rendered. No nausea, no vomiting and no abdominal pain noted. Still a/w placement. To continue monitoring patient.
[2019-10-12 20:45] VITALS: BP 150/86
[2019-10-13 00:38] VITALS: BP 135/67
[2019-10-13 04:05] VITALS: BP 149/77
--- NOTE | 2019-10-13 05:09 | NUR ---
PATIENT ALERT TO NAME, HOWEVER, FOLLOWS SIMPLE INSTRUCTIONS. NO S/S OF PAIN. GREGORIO TO D/D WITH YELLOW URINE. IVF INFUSING W/O COMPLICATION. MEDS CRUSHED AND MIXED WITH APPLESAUCE, PATIENT TAKES WELL. SMALL BROWN SOFT BM. DRESSINGS TO R/L HIPS CHANGED PER ORDER - FOUL SMELL. WILL MONITOR.
[2019-10-13 07:43] VITALS: BP 146/97
--- NOTE | 2019-10-13 16:17 | NUR ---
Assumed patient care at 0715. Vital signs have been stable except for am temperature of 100. Patient has appeared to be in no distress. Normal saline continues to run at 75cc/hr in right wrist. He has had no adverse reactions to the IV Antibiotic Therapy. Patient has been eating well. He is alert and oriented to self only but will answer "yes" and "no." He has spent most of the day resting with eyes closed.
[2019-10-13 19:39] VITALS: BP 132/70
[2019-10-14 00:07] VITALS: BP 124/66
--- NOTE | 2019-10-14 04:23 | NUR ---
PATIENT ALERT X1. TOTAL CARE. TAKES MEDS CRUSHED WITH APPLESAUCE W/O COMPLICATION. IVF INFUSING AND IVPB INFUSED WITH NO PROBLEM. FREQUENT TURNS. DRESSINGS DRY AND INTACT. WILL MONITOR.
[2019-10-14 07:31] VITALS: BP 142/82
--- NOTE | 2019-10-14 16:15 | NUR ---
CARE TEAM FOLOWED UP WITH [facility] THEY STATED THAT THEY WERE TRYING TO LOCATE REFERRAL IT WAS GOING TO BE RESENT. FOLLOWED UP WITH [facility] WITH NO RESPONSE. CM ASKED DC COMPRESSED YEAST SUPERVISOR TO FAX REFERRAL TO [facility] FOR POSSIBLE ADMISSION.
[2019-10-14 16:44] VITALS: BP 144/74
--- NOTE | 2019-10-14 16:58 | NUR ---
FAXED REFERRAL AGAIN TO [place] RECEIVED CONFIRMATION AND LEFT MSG WITH TRAV. FAXED REFERRAL TO [facility] RECEIVED CONFIRMATION AND LEFT MSG WITH JAQUI IN ADM.
--- NOTE | 2019-10-14 17:41 | NUR ---
FAXED REFERRAL TO [facility] RECEIVED CONFIRMATION AND LEFT MSG WITH TRAV IN ADM. FAXED REFERRAL TO [facility] RECEIVED CONFIRMATION LEFT MSG WITH JAQUI IN ADM, DP TO FOLLOW.
--- NOTE | 2019-10-14 19:24 | NUR ---
Assumed patient care at 0715. Vital signs have been stable, LSCTA, BS x's 4, abdomen is soft and non-tender. Normal Saline continues at 75cc/hr via IV in right wrist. Patient continues to be alert and oriented to self. He will answer with a "yes" or "no." Patient continues to consume adequate amounts of thickened liquids and pureed foods. He was given Hydrocodone 2 tabs po this am for bilateral hip pain at wound sites Wound Care Team here today. Will report to on-coming nurse.
[2019-10-14 20:00] VITALS: BP 121/61
--- NOTE | 2019-10-15 03:55 | NUR ---
PT TRANSFERRED FROM [facility] AT SHIFT CHANGE. A&OX1 TO SELF. IV INTACT AND ABX INFUSING. MEDS GIVEN CRUSHED IN APPLE SAUCE AND PT COLEEN IT WELL. FOLLEY IN PLACE, TURNS DONE AND PRAFO BOOTS ON BLE. HYDROCODONE GIVEN FOR PAINX1. FALL PREC IN PLACE AND WILL CONT WITH POC TILL EOS.
[2019-10-15 04:11] VITALS: BP 100/51
[2019-10-15 08:20] VITALS: BP 132/79
--- NOTE | 2019-10-15 15:28 | NUR ---
REACHED OUT TO [facility] THIS DAY. THEY INDIATED THAT THEY SHOULD HAVE A DEERMINATION BY END OF DAY TODAY. CM REACHED OUT TO [facility] REGARDING STATUS OF MEDICAID APPLICATION THIS DAY WELL. CM ATTEMPTING TO FIND PLACEMENT FOR PT.
[2019-10-15 17:29] VITALS: BP 126/63
[2019-10-15 19:40] VITALS: BP 116/52
[2019-10-15 19:45] VITALS: BP 138/66
--- NOTE | 2019-10-15 20:08 | NUR ---
PT CARE ASSUMED AT 0700. DROWSY BUT WILL ANSWER QUESTIONS WITH YES/NO. [id number]. FLUIDS DISCONTINUED AND ON COMFORT CARE. DRESSING CHANGES PERFORMED. PT NOT COMPLAINING OF ANY PAIN. FEVER OF 101.9 TREATED WITH TYLENOL. TAKES MEDICATIONS CRUSHED WITH APPLESAUCE. IV PATENT WITH NO EDNESS OR EDEMA. FALL PROTOCOL IN PLACE. BATH GIVEN. CALL LIGHT IN REACH. WILL CONTINUE TO MONITOR. DARLINE FOR RETENTION. REPORT GIVEN TO RNJERALD
--- NOTE | 2019-10-15 23:36 | NUR ---
ASSUMED PT CARE AT 1900. PT RESPONDS TO NAME BUT OTHERWISE IS NONVERBAL. PM MEDS GIVEN CRUSHED IN APPLESAUCE. Q2 TURNS PROVIDED. DARLINE PATENT WITH GOOD OUTPUT. DRESSINGS D/C/I. CURRENTLY RESTING IN BED WITH EYES CLOSED, WILL CONTINUE TO MONITOR THROUGHOUT THE NIGHT. AWAITING PLACEMENT.
[2019-10-16 04:00] VITALS: BP 117/64
[2019-10-16 07:25] VITALS: BP 139/82
--- NOTE | 2019-10-16 14:49 | NUR ---
FAXED CLINICAL UPDATE TO RECEIVED CONFIRMATIOM AND LEFT MSG WITH YOLANDA IN ADM. DP TO FOLLOW.
--- NOTE | 2019-10-16 14:58 | NUR ---
[facility] INDICATED THAT THEY CAN'T ACCEPT PT. CLINICAL UPDATES TO BE SENT TO [facility] IN ADMISSIONS THEY HAVEN'T DENIED PT YET.
--- NOTE | 2019-10-16 16:01 | NUR ---
PT CARE ASSUME AT 0700. PT SLEEPING MOST OF THE DAY BUT ABLE TO ANSWER QUESTIONS WITH YES/NO. Q2 TURNS. PUREED DIET WITH NECTAR THICK FLUIDS. WOUND DRESSING CHANGES COMPLEETE AND MONDAY PICTURES TAKEN. PRAFO BOOTS IN PLACE. AIRLOSS PUMP ON BED. ORAL CARE COMPLEETED. IV PATENT WITH NO REDNESS OR EDEMA, SALINE LOCKED. SEIZURE PRECAUTIONS IN PLACE. FALL PROTOCOL IN PLACE. CALL LIGHT IN REACH. WILL CONTINUE TO MONITOR. AWAITNG PLACE TO FACILTY.
[2019-10-16 16:11] VITALS: BP 147/83
[2019-10-16 18:54] VITALS: BP 178/97
--- NOTE | 2019-10-17 03:13 | NUR ---
ASSUMED CARE OF PT AT 1900. PT IS A/O TO PERSON. ABLE TO COMMUNICATE THROUGH ASKING YES/NO QUESTIONS. AT TIMES PT WOULD GIVE ONE WORD ANSWERS. TEMP ELEVATED, PRN TYLENOL GIVEN. PT IS NOW AFEBRILE AND IS LAYING IN HIS BED AND APPEARS TO BE SLEEPING. FALL PRECAUTIONS IN PLACE, SEIZURE PRECAUTIONS IN PLACE. WOUND CARE COMPLETED DIRECTED. WILL CONTINUE Q2 HR TURNS, AND MONTIOR PT FOR ANY S/S OF DISCOMFORT.
[2019-10-17 04:12] VITALS: BP 112/56
[2019-10-17 08:16] VITALS: BP 118/72
--- NOTE | 2019-10-17 17:29 | NUR ---
PT ASSESSED AT START OF SHIFT. PT AWAKENS EASILY AND SPEAKS ONE WORD ANSWERS TO QUESTIONS. TURNED Q2HRS. HAD LARGE SOFT, BROWN BM THIS AFTERNOON. WOUND DSNGS CHANGED PER ORDERS. ATE SM AMTS PUREED FOOD. FEBRILE AND TYLENOL CRUSHED IN APPLESAUCE GIVEN. GOOD URINE OUTPUT.
[2019-10-17 17:51] VITALS: BP 137/75
[2019-10-17 19:55] VITALS: BP 133/81
[2019-10-18 02:35] VITALS: BP 133/45
--- NOTE | 2019-10-18 03:17 | NUR ---
PT SPEAKS ONE WORD ANSWERS AT TIMES. Q2HR TURNS PROVIDED. DRSG TO WOUNDS ARE INTACT. PRAFO BOOTS IN PLACE. GREGORIO TO D/D WITH DARK YELLOW URINE OUTPUT. GETTING PO TYLENOL FOR FEVERS. PT TAKES MEDS WELL CRUSHED IN YOGHURT OR PUDDING.WILL CONTINUE WITH POC TILL EOS.
[2019-10-18 07:58] VITALS: BP 124/75
--- NOTE | 2019-10-18 08:03 | NUR ---
Pt remains with comfort care measures.
[2019-10-18 16:04] VITALS: BP 106/58
--- NOTE | 2019-10-18 17:15 | NUR ---
PT RESTING FOR MOST OF THE DAY. ASSESSMENTS DOCUMENTED. PT HAS ADEQUATE APPETITITE. ADEQUATE UOP. WOUNDS EVALUATED, CLEANED, AND DRESSED. PT AND HAVE BEEN EDUCATED AND UPDATED. PT SLOWLY PROGRESSING TOWARDS POC. WILL CONTINUE TO MONITOR.
[2019-10-18 20:25] VITALS: BP 128/59
--- NOTE | 2019-10-18 21:46 | NUR ---
1900 assumed care of pt after bedside report,1999 baseline assessment completed pt resting with eyes closed, awakens easily oriented to person only contracted, boots to ble scd's, fall and seizure precautions in place, when asked if in pain pt denies, thickened liquid given will continue to [id number] tylenol given fo slight fever will recheck
[2019-10-19] VITALS: BP 149/77
[2019-10-19 04:50] VITALS: BP 122/66
[2019-10-19 07:35] VITALS: BP 157/83
--- NOTE | 2019-10-19 11:22 | NUR ---
THIS NURSE CALLED PATIENT'S MARY AND GAVE REPORT ON PATIENT. T= 98.7 AFTER TYLENOL PO PRN,
[2019-10-19 15:21] VITALS: BP 141/79
--- NOTE | 2019-10-19 16:41 | NUR ---
WOUND CARE TO COCCYX AND LISET HEELS AND LISET HIPS COMPLETED AT THIS TIME ORDERED. PT HAD SMALL BM. HEEL PROTECTORS ON AND TURNED TO SIDE. PT WAS GIVEN PRN PAIN MED EARLIER. SPOKE WITH EARLIER.
[2019-10-19 20:27] VITALS: BP 116/85
--- NOTE | 2019-10-20 03:14 | NUR ---
ASSUMED PT CARE AT 1900. PT REPORTS NO PAIN WHEN ASKED. TYLENOL GIVEN FOR TEMP TONIGHT. Q2 TURNS PROVIDED. GREGORIO PATENT WITH GOOD OUTPUT. DRESSING D/C/I. CURRENTLY RESTING IN BED WITH EYES CLOSED, NO SIGNIFICANT CHANGES AT THIS TIME.
[2019-10-20 05:43] VITALS: BP 141/72
[2019-10-20 07:51] VITALS: BP 136/61
[2019-10-20 16:01] VITALS: BP 141/83
--- NOTE | 2019-10-20 18:45 | NUR ---
ASSUMED CARE OF THE PT AT 0700. PT IS TOTAL CARE. L AC DRY AND INTACT. PT UNABLE TO SPEAK BUT GRIMACES WHEN IN PAIN. CHANGED L & R HEEL DRESSINGS AND R HIP. PT BECAME VERY UPSET WHEN TRYING TO REPOSITION TO CHANGE R HIP AND COCCYX DRESSINGS, PAIN MEDS GIVEN FOR PAIN, SEE EMAR. CONTACTED AND LEFT VM GREGORIO IN PLACE, PREFLO BOOTS IN PLACE, Q2 TURNS. FALL PRECAUTIONS IN PLACE, BED IN THE LOWEST POSITION AND CALL LIGHT IS WITHIN REACH. WILL CONTINUE TO MONITOR THE PT.
[2019-10-20 19:22] VITALS: BP 145/72
[2019-10-21 04:15] VITALS: BP 157/84
--- NOTE | 2019-10-21 06:32 | NUR ---
RECIEVED CARE OF THIS PATIENT AT 1900. PATIENT ALERT AND ORIENTED X PERSON AND PLACE. DENIES APIN. DRESSING AND LISET HIPS AND COCCYS WAS CHANGED BY ANOTHER NURSE. DRESSING ON LISET HEELS D/I. IV PATENT WITH FLUIDS INFUSING. GREGORIO PATENT. REMAINS ON BEDREST WITH TURN Q2.SLEPT OFF AND ON DURING NIGHT.
[2019-10-21 08:20] VITALS: BP 153/77
--- NOTE | 2019-10-21 09:08 | NUR ---
MONDAY REFERRALS WERE SENT TO [facility], [facility], AND [facility]. [facility] INDICATED THEY DIDN'T HAVE ANY LTC BEDS. CM TO FOLLOW UP WITH OTHER FACILITIES.
--- NOTE | 2019-10-21 16:25 | NUR ---
OSKAR LIAISON WITH [facility] CAME AND DID ON SITE VIST WITH PT THIS DAY AROUND 1500. STILL TRYING TO FIND FACILIY TO ACCEPT PT. CM CALLED AND PROVIDED PT'S UPDATE. CM TO FOLLOW INDICATED WITH DC PLANNING.
[2019-10-21 16:38] VITALS: BP 161/63
--- NOTE | 2019-10-21 18:23 | NUR ---
PT ASSESSED AT START OF SHIFT. PT MORE ALERT AND SPEAKING SOME TODAY. NO SIGNS OF SEIZURES. TURNED Q2HRS. FED AND EATING VERY WELL. DSNGS CHANGED. URINE OUTPUT GOOD. ASSEMBLER ARRANGER SPOKE W/ TODAY.
[2019-10-21 21:15] VITALS: BP 147/89
--- NOTE | 2019-10-22 02:00 | NUR ---
Q2HR TURNS PROVIDED. PT IS ALERT TO SELF. GREGORIO WITH ADEQUATE OUTPUT. TAKES MEDS WELL CRUSHED IN APPLE SAUCE.DRSG TO WOUNDS IN PLACE. AFEBRILE. PRAFO BOOTS IN PLACE, CONTINUES ON IV FLUIDS.
[2019-10-22 06:00] VITALS: BP 154/75
[2019-10-22 08:10] VITALS: BP 158/88
--- NOTE | 2019-10-22 12:23 | NUR ---
PT A&O TO SELF. IV INTACT IN L AC IFUSING FLUIDS W/O COMPS. LOWER EXTREMITIES ARE CONTRACTED. PROFO BOOTS ARE ON. WOUNDS TO BILAT. HIPS AND SACRUM DRSG'S HAVE BEEN CHANGED. PT REQUIRES TO BE FED. PT IS NOT IMPULSIVE. CALL LIGHT W/I REACH, BED ALARM ON.
--- NOTE | 2019-10-22 16:09 | NUR ---
CM CALLED OVER TO [facility] AND LEFT FOR ADMISSION TO FINE OUT DETERMINATION ON POSSIBLE ADMISSION. NO RESPONSE OF THIS NOTE. CM CALLED [facility]ILL AT SPOUSE'S REQUEST TO SEE IF THEY WERE ACCEPTING NEW PATIENTS YET. CM FOR FOLLOW INDICATED WITH DC PLANNING.
[2019-10-22 16:59] VITALS: BP 151/73
[2019-10-22 20:15] VITALS: BP 151/72
[2019-10-23 04:40] VITALS: BP 137/61
--- NOTE | 2019-10-23 07:29 | NUR ---
ASSESSMENT COMPLETED. PT TURNED Q2HRS. HE COOPEARATES WELL, JUST NEED TO BE TOLD HE IS ABOUT TO GET TURNED. TMAX OF 100.9, TYLENOL GIVEN. PT SWALLOWS WITH NO DIFFICULTIES. NO BM. FAIR AMT OF U/O VIA GREGORIO.DRSG TO WOUNDS IN PLACE AND DRY.
[2019-10-23 08:13] VITALS: BP 152/66
--- NOTE | 2019-10-23 14:52 | NUR ---
[facility] HAS INDICATED THAT [facility] CAN ACCEPT PT LTC WITH HOSPICE MEDICAID PENDING THEY JUST REQUIRE A COPY OF THE COMPLETED MEDICAID APPLICATION. CM WORKING WITH [facility], PT, AND SPOUSE TO BE ABLE TO PRODUCE THAT TO THEM MITCH. PT'S SPOUSE TO [facility] TOMORROW TO SIGN DOCUMENT FOR CM TO SUBMIT TO [facility] TO FINIALIZE APPLICATION. CM TO FOLLOW INIDCATED WITH DC SOON POSSIBLE.
--- NOTE | 2019-10-23 15:02 | NUR ---
PATIENT'S HERE AT BEDSIDE REPORT GIVEN TO HER. PT IS RESTING COMFORTABLY IN BED WATCHING TV. NO PAIN OR RESP DISTRESS AT THIS TIME.
[2019-10-23 16:02] VITALS: BP 158/88
[2019-10-23 18:55] VITALS: BP 139/82
[2019-10-24 08:45] VITALS: BP 168/100
--- NOTE | 2019-10-24 16:41 | NUR ---
COPY OF MEDICAID APPLICATION SENT TO [facility] THIS DAY. WOUND CARE CHANGED ORDERS. CM TO FOLLOW UP WITH FACILITY TOMORROW TO HOPEFULLY FACILITATE PT'S DC TOMORROW.
--- NOTE | 2019-10-24 16:47 | NUR ---
ASSUMED CARE OF THE PT AT 0700. PT IS ON BEDREST. CAME TO VISIT TODAY AND UPDATD HER ON PTS CARE. [facility] SIGNED FOR PT FOR CM. L & R HEEL NS, BETADINE AND KERLIX, L AND R HIP NS, WET TO DRY DATKINS KERLIX, ABD AND TAPE AND COCCYX ZGUARD AND ABD. PT GRIMACES WHEN IN PAIN, PAINMEDS GIVEN, SEE EMAR. PTS BP AND HR WAS ELEVATED IN AM, DOCTOR NOTIFIED, MEDS GIVEN. PREFLO BOOTS IN PLACE. PT RAN FEVER IN THE AM, DOCTOR NOTIFIED AND AWARE. FALL PRECAUTIONS IN PLACE, BED IN THE LOWEST POSITION AND CALL LIGHT IS WITHIN REACH. WILL CONTINUE TO MONITOR THE PT.
[2019-10-24 18:34] VITALS: BP 142/84
[2019-10-24 19:44] VITALS: BP 148/71
--- NOTE | 2019-10-25 00:28 | NUR ---
ASSUMED PT CARE AT 1900. PT IS A/O TO SELF. HE DOESN'T RESPOND WHEN ASKED QUESTIONS BUT DOES KEEP EYE CONTACT. REPOSITIONING APPEARS TO BE PAINFUL THE PT FROWNS AND GRIMACES WITH MOVEMENT. PRN PAIN MEDICATION GIVEN ORDERED. PT IS NOW RESTING IN HIS BED AND APPEARS TO BE SLEEPING. SEIZURE AND FALL PRECAUTIONS IN PLACE. WILL CONTINUE TO MONITOR.
[2019-10-25 04:00] VITALS: BP 109/40
[2019-10-25 07:35] VITALS: BP 125/70
[2019-10-25] MEDS ORDERED: MSL20MG/ML SUBLING (09:54)
[2019-10-25] MEDS ORDERED: HYDROCODON-ACE1 EAC7 PO (09:54)
--- NOTE | 2019-10-25 16:01 | NUR ---
RITA SPOKE WITH WALLY IN ADMISSIONS AT [place] THIS AM AND SHE INDICATED SHE HADN'T RECEIVED FAXED MEDICAID APPLICATION YESTERDAY. CM RESENT IT. SHE INDICATED THEY HAD ACCEPTED PT MEDICALLY BUT WERE STILL DETERMINING FINICANCIALS. RITA FOLLOWED UP THIS AFTERNOON AND SHE INDICATED THAT MEDICAID APPLICATION WASN'T COMPLETE ENOUGH FOR THEM TO MAKE A DETERMINATION AT THIS TIME REGARDING ADMISSION. CM STILL WAINTING..
[2019-10-25 16:32] VITALS: BP 134/76
[2019-10-25 20:04] VITALS: BP 147/57
[2019-10-26 03:27] VITALS: BP 125/71
--- NOTE | 2019-10-26 04:44 | NUR ---
ASSUMED PT CARE AT 1900. PT IS A/O TO SELF. UPON ASSESSMENT, WOUNDS WERE NOTED TO HAVE EXCESS DRAINAGE. ALL DRESSINGS WERE CHANGED AND ARE NOW DRY AND INTACT. PT EXHIBITS SIGNS OF PAIN. PRN PAIN MEDICATION GIVEN ORDERED. PT IS NOW IN HIS BED AND APPEARS TO BE SLEEPING. SEIZURE AND FALL PRECAUTIONS IN PLACE, CALL LIGHT WITHIN REACH. WILL CONTINUE TO MONITOR.
[2019-10-26 08:23] VITALS: BP 123/71
--- NOTE | 2019-10-26 16:39 | NUR ---
ASSESSED AT START OF SHIFT. DROWSY IN THE BEGINNING BUT AWAKENED AND WAS ALERT ANSEERING QUESTIONS. HERE FOR VISIT. STATED SHE RECEIVED PAPER WORK IN THE MAIL YESTERDAY TO FILL OUT FOR PLACEMENT. FED AND EATING FAIR AMTS. DR. SAENZ IN TO SEE WOUNDS AND CHANGE DSNGS. PAIN PILLS GIVEN THIS AFTERNOON W/ RELIEF OF PAIN. TURNED Q 2HRS. MODERATE SOFT BM.
[2019-10-26 16:40] VITALS: BP 102/67
[2019-10-26 16:44] VITALS: BP 102/67
[2019-10-26 22:05] VITALS: BP 140/73
--- NOTE | 2019-10-27 00:58 | NUR ---
ASSUMED CARE OF PT AT 1900. PT IS A/O TO PERSON. WAS ABLE TO ANSWER YES/NO QUESTIONS. ALL DRESSINGS ON WOUNDS ARE DRY, INTACT, AND NO DRAINAGE. PRN MEDICATION GIVEN DIRECTED. PT IS CURRENTLY IN BED AND APPEARS TO BE SLEEPING. WILL CONTINUE TO MONITOR.
[2019-10-27 06:10] VITALS: BP 130/65
[2019-10-27 07:45] VITALS: BP 123/74
[2019-10-27 12:00] VITALS: BP 110/43
[2019-10-27 16:52] VITALS: BP 110/43
--- NOTE | 2019-10-27 19:48 | NUR ---
ASSUMED PT CARE AT 0700. ALERT X ORIENTED X PERSON. ANSWERS Y/N. DRESSENIG CHANGE DONE, WOUNDS DRY, NO DRAINAGE. PAIN MEDS GIVEN BEFORE WOUND DRESSING CHANGE. HERE FOR VISIT AND SHE SAID PT IS ASKING FOR PAIN MEDICINE ONE TIME. TURNED QX 2HRS. SMALL SOFT BM. SIZURE AND FALL PRECAUTION IN PLACE. CALL LIGHT IN REACH. SHIFT REPORT GIVEN.
[2019-10-27 20:05] VITALS: BP 137/63
--- NOTE | 2019-10-27 22:27 | NUR ---
ASSUMED PT CARE AT 1900. NO FEVER WITH PM VITALS. PM MED GIVEN CRUSHED IN APPLESAUCE. GREGORIO PATENT WITH GOOD OUTPUT. PT DENIES PAIN WHEN ASKED. NO S/S OF DISTRESS BUT WILL CONTINUE TO MONITOR. CURRENTLY RESTING IN BED WITH EYES CLOSED. Q2 TURNS PROVIDED.
--- NOTE | 2019-10-28 13:12 | NUR ---
Assumed care of pt at 0700. Pt a&ox1. Denies pain. Q2h turn. Pills administered crushed in apple sauce. Dressing on wounds c/d/i. Murri[place] catheter in place. [place] thicken fluid constistency. On seizure precautions. Fall precautions in place. Will continue to monitor.
[2019-10-28 16:20] VITALS: BP 143/74
[2019-10-28 19:23] VITALS: BP 151/71
--- NOTE | 2019-10-28 21:57 | NUR ---
ASSUMED PT CARE AT 1900. PM MED GIVEN CRUSEHD IN APPLESAUCE. TEMP TONIGHT, DECREASED ONCE SOME BLANKETS WERE TAKEN OFF. WILL MONITOR IT. TURNS BEING PROVIDED. DARLINE PATENT WITH GOOD OUTPUT. NO SIGNIFICANT CHANGES THUS FAR.
[2019-10-29 04:53] VITALS: BP 137/75
[2019-10-29 08:14] VITALS: BP 136/74
--- NOTE | 2019-10-29 15:30 | NUR ---
[facility] WITH ADMISSIONS AT [place] TO REACH OUT TO PT'S SPOUSE TO DISCUSS FINANCES IT PERTAINS TO MEDICAD APPLICATION. CM TO FOLLOW UP WITH THEM BOTH. CM TO FOLLOW INDICATED WITH DC PLANNING.
[2019-10-29 16:59] VITALS: BP 151/95
[2019-10-29 19:20] VITALS: BP 152/85
--- NOTE | 2019-10-29 19:54 | NUR ---
Assumed care of pt at 0700. Pt a&ox1. Q2h turn. Dressings changed. [place] thick liquids. Pills crushed in apple sauce. Prefo boots in place. Murri[place] catheter in place. Fall precautions in place. Report given to gabriel RAMSAY.
[2019-10-30 03:10] VITALS: BP 146/74
--- NOTE | 2019-10-30 03:13 | NUR ---
ASSUMED PT CARE AT APPROX 1900.PT REPOSITIONED NEEDED.PT WITH INCREASE TEMP,MANAGED WITH MED.PRAFO BOOT IN PLACE ON LISET HEELS,BETADINE APPLIED.GREGORIO CATH IN PLACE.DRSG TO HIS LISET HIPS,C/D/I. Z GUARD TO HIS SACRUM. FALL PREC IN PLACE,CALL LIGHT WIOTHIN REACH.
[2019-10-30 08:47] VITALS: BP 154/70
--- NOTE | 2019-10-30 11:57 | NUR ---
WOUND CARE R/FU ROUNDING W/ DR LOPEZ, JEAN RN, ASSESSED WOUNDS ALSO W/ CAREER DEVELOPER [place], PER WOUNDS HEALING SACRAL, AND BILAT HIP WOUNDS, BILAT HEELS REMAIN UNSTAGEABLE W/ DRY ESCHAR, NO S/S INFECTION, SEE PROCESS INTERVENTION FOR WOUND DETAILS, PHOTOS TAKEN, PT REMAINS ON LOW AIR LOSS PUMP TO BED, PRAFO BOOTS IN PLACE RECOMMENDATIONS; CONT POC PER DR LOPEZ ORDERS, CONT LOW AIR LOSS PUMP TO BED, TURN Q 2HOURS, OFF LOADING, PRAFO BOOTS ON AT ALL TIMES
--- NOTE | 2019-10-30 15:28 | NUR ---
RECEIVED PT'S CARE AROUND 07; PT. ON BED; RESTING WITH EYES CLOSED; REST INTERRUPTED AT SHIFT CHANGE; ALERT; DURING AM ASSESSMENT PT. ALERT TO PERSON; ABLE TO SWALLOW AM MEDICATIONS; HAD SOME BREAKFAST; ST. NO PAIN; WOUND CARE PERFORMED BY WOUND CARE NURSE; PICTURES TAKEN; TURN FROM SIDE TO SIDE; AT THE BED SIDE DURING LUNCH TIME; REQUESTED PRN ACETAMINOPHEN, ST. PT. FROWNCING; PRN MEDICATION GIVEN; RE-ASSESSMENT PT. RESTING; TURNED FROM SIDE TO SIDE; DR. ROCHA NOTIFIED ABOUT FLOMAX NOT ABLE TO CRUSH; ST. UNDERSTANDING; MONITORING PT.; ASSESSMENT CHARGED; FOLLOWING POC; WILL PASS ON REPORT;
[2019-10-30 18:00] VITALS: BP 202/127
[2019-10-30 19:00] VITALS: BP 151/81
[2019-10-30 20:30] VITALS: BP 140/66
--- NOTE | 2019-10-31 03:00 | NUR ---
Q2HR PROVIDED. PT FEBRILE AND TACHYCARDIC, TYLENOL GIVEN.CLOTH COMPRESSIONS ALSO PROVIDED. PT TAKES MEDS CRUSHED IN APPLESAUCE WITH NO DIFFICULTIES.WOUNDS WIT DRSG INTACT, PRAFO BOOTS ALSO IN PLACE.HAS CLONIDINE PATCH TO RIGHT UPPER CHEST.
[2019-10-31 03:15] VITALS: BP 148/75
[2019-10-31 08:30] VITALS: BP 138/66
--- NOTE | 2019-10-31 10:10 | NUR ---
Assumed care of pt at 0700. Pt a&ox1. Q2h turn. Dressings changed. Prefo boots in place. [place] thick liquids. Pills crushed in apple sauce. Fall precautions in place. Frequent rounding. Will continue to monitor.
[2019-10-31 16:13] VITALS: BP 124/61
[2019-10-31 19:00] VITALS: BP 121/69
--- NOTE | 2019-11-01 03:14 | NUR ---
Q 2HR TURNS PROVIDED. DRSG TO LEFT HIP CHANGED BECAUSE IT WAS TOO SOILED. BEEN AFEBRILE. GREGORIO TO D/D.PRAFO IN PLACE. ORAL CARE PROVIDED. PT AWAKE AND COOPERATIVE. WILL CONTINUE WITH POC TILL EOS.
[2019-11-01 03:40] VITALS: BP 131/60
[2019-11-01 08:47] VITALS: BP 164/88
--- NOTE | 2019-11-01 11:23 | NUR ---
SPOKE WITH PATIENT'S GAVE HER UPDATE. SHE WILL BE UP THIS AFTERNOON TO VISIT WITH PATIENT.
--- NOTE | 2019-11-01 15:53 | NUR ---
CM HAD CALLED WALLY AT [facility] THIS DAY TO CHECK ON IF CM COULD BE OF ANY ASSISTANCE ON WORKING WITH THEM AND SPOUSE TO FACILITATE ASSISTANCE WITH PRODUCING DOCUMENTATION FOR MEDICAID. CM RECEIVED NO RESPONSE OF YET. AWAITNG RESPONSE. PT WILL REMAIN HERE UNTIL PLACEMENT CAN BE ARRANGED OT PT'S SPOUSE INDICATES THAT SHE FEELS COMFORTABLE PROVIDING CARE TO HIM AT HOME WITH HOSPICE SERVICES. CM TO FOLLOW INDICATED WITH DC PLANNING.
--- NOTE | 2019-11-01 17:26 | NUR ---
PATIENT'S HERE AND IS FEEDING HIM. HIS TX'S DONE ORDERED. UPDATED ABOUT PATIENTS CONDITION. PT GIVEN PRN PAIN MED.
[2019-11-01 17:36] VITALS: BP 155/89
[2019-11-01 19:40] VITALS: BP 142/83
--- NOTE | 2019-11-02 00:33 | NUR ---
ASSUMED PT CARE AT APPROX 1900.PT REPOSITIONED WHILE IN BED.PO FLUIDS OFFERED,PT WAS ABLE TO DRINK WITHOUT PROBLEM.GREGORIO CATH TO DD.DRSG TO HIS LISET HIPS C/D/I.BETADINE AND PRAFO BOOTS TO LISET HEELS.PT SLEEPING AT THIS TIME ON HIS BED.FALL PRECAUTIONS IN PLACE,CALL LIGHT WITHIN REACH.
[2019-11-02 04:25] VITALS: BP 138/77
[2019-11-02 08:32] VITALS: BP 134/82
[2019-11-02 17:24] VITALS: BP 141/76
[2019-11-02 20:40] VITALS: BP 146/86
--- NOTE | 2019-11-03 03:48 | NUR ---
PT WAS OBSERVED LYING IN BED WITH HIS EYES CLOSED AT THE START OF SHIFT.PT REPOSITIONED Q2.DRSG TO HIS LISET HIPS AND HEELS C/D/I.PO FLUIDS ENCOURAGED.L HAND SWELLING NOTED,ELEVATED WITH A PILLOW.PRAFO BOOTS AND SCD IN PLACE.LOW AIR LOSS MATTRESS IN PLACE,FALL PRECAUTIONS IN PLACE,CALL LIGHT WITHIN REACH.
[2019-11-03 04:43] VITALS: BP 135/53
[2019-11-03 08:26] LABS: MCH 23.7 pg (26.0-34.0); MCHC 32.3 g/dL (28.0-37.0); MCV 73.4 fL (80.0-100.0); RBC 2.7 mil/uL (4.50-6.00); RDW 18.9 % (10.5-14.5); WBC 13.7 thou/uL (4.0-11.0)
[2019-11-03 08:29] VITALS: BP 128/68
[2019-11-03 08:48] LABS: HEMATOCRIT 19.8 % (42.0-52.0); HEMOGLOBIN 6.4 gm/dL (14.0-18.0)
--- NOTE | 2019-11-03 10:16 | NUR ---
Assumed care of pt. at 0700. Pt. is calm amd cooperative. Grimaces when experiencing pain. Pain medications administered prior to wound dressing changes. Fall precautions in place. [place] cath in place. Seizure precautions in place.
[2019-11-03 18:19] VITALS: BP 157/92
[2019-11-03 19:54] VITALS: BP 139/76
--- NOTE | 2019-11-03 23:52 | NUR ---
ASSESSMENT COMPLETED. PT IS AWAKE. MOSTLY NON VERBAL. DRESSING TO LISET HIPS CHANGED TONIGHT. PT TOLERATED WELL.STILL EATING AND SWALLOWING OKAY. LOW GRADE FEVER. GREGORIO WITH CLOUDY URINE.PRAFO BOOTS IN PLACE. Q2HR TURNS . NO FURTHER CONCERNS.
[2019-11-04 05:06] VITALS: BP 147/63
[2019-11-04 07:00] VITALS: BP 106/55
--- NOTE | 2019-11-04 14:49 | NUR ---
Assumed pt care at 0700. Pt a&ox1. Q2h turn. Prn pain meds administered for comfort and before dressing change. Pressure dressings changed. Feeder for meals. Fall precautions in place. Will continue to monitor.
--- NOTE | 2019-11-04 18:02 | NUR ---
ASSUMED PT CARE AT APPROX 1600.PT HAD TEMP OF 100.2.TYLENOL ADMINISTERED.MEDS CRUSHED IN APPLESAUCE AND NECTAR THICK LIQUID.PT APPEARS TO BE SLEEPING AT THIS TIME.DRSG TO HIS LISET HIP C/D/I.PT APPEARS TO BE SLEEPING AT THIS TIME.FALL PRECAUTIONS IN PLACE,CALL LIGHT WITHIN REACH.
[2019-11-04 18:44] VITALS: BP 115/67
[2019-11-04 20:50] VITALS: BP 117/69
--- NOTE | 2019-11-05 00:21 | NUR ---
ASSESSED AT START OF SHIFT PT RESTING IN BED. AWAKE AND ORIENTED TO SELF. WOUND DRESSING DONE. PRAFO BOOTS AND SCD'S INTACT IN BLE. Q2 TURN DONE AND PT ON A LOW AIR LOSS MATTRESS. COLEEN EVENING MEDS WELL CRUSHED IN THICK LIQUID. MAGIC CUP ALSO GIVEN. NO FURTHER SIGNS OF DISCOMFORT. HAD SLIGHT BM THIS SHIFT. FALL PREC IN PLACE WILL CONT WITH POC TILL EOS.
[2019-11-05 03:50] VITALS: BP 124/65
[2019-11-05 07:16] VITALS: BP 108/67
--- NOTE | 2019-11-05 10:51 | NUR ---
PT RESTING IN BED WATCHING TV. PT GIVEN TYLENOL FOR TEMP.
--- NOTE | 2019-11-05 12:44 | NUR ---
SPOKE WITH MARY JIANG AND UPDATED HER ON PATIENT'S CONDITION. SHE WILL BE HERE TO SEE HER AT DINNER.
[2019-11-05 16:35] VITALS: BP 115/63
[2019-11-05 19:00] VITALS: BP 113/69
--- NOTE | 2019-11-06 02:27 | NUR ---
ASSESSED AT START OF SHIFT PT RESTING IN BED. A&OX1 TO SELF. EVENING MEDS GIVEN CRUSHED IN THICK LIQUID PT COLEEN IT WELL. PRN PAIN MEDS ADMINISTERED PRIOR TO WOUND DRESSING CHANGES. ON A LOW AIR LOSS MATRESS, PRAFO BOOTS ON AND Q2 TURN DONE. TEMP BETTER THIS SHIFT. FALL PREC IN PLACE. PO FLUIDS GIVEN AND ORAL CARE DONE. PT HAD A BM THIS SHIFT. FOLLEY CATH IN PLACE AND WILL CONT WITH POC TILL EOS.
[2019-11-06 04:48] VITALS: BP 160/90
[2019-11-06 07:10] VITALS: BP 169/103
--- NOTE | 2019-11-06 07:31 | NUR ---
ASSUMED CARE OF PATIENT HE IS RESTING IN BED WAS FIVEN TYLENOL ON NOC FOR TEMP WILL RECHECK. PT W/O S/S PAIN. PT IS TOTAL CARE WITH WOUND DRESSING CHANGES.
[2019-11-06 16:56] VITALS: BP 150/86
[2019-11-06 18:58] VITALS: BP 151/77
--- NOTE | 2019-11-07 03:40 | NUR ---
PT IS MORE LEHARGIC TONIGHT. HE IS NOT RESPONSIVE. FOUL ODOR TO WOUND. FEBRILE. TYLENOL GIVEN. ALMOST ZERO U/O NOTED IN GREGORIO. PT IS TACHYPNEIC TOO. I GAVE HIM SOME TYLENOL CRUSHED IN [place]. HE SPIT MOST OF IT OUT. I ORDERED ROXANOL FROM PHARMACY- TO ADMINISTER FOR COMFORT.
[2019-11-07 04:13] VITALS: BP 148/85
[2019-11-07 07:10] VITALS: BP 77/33
[2019-11-07 07:13] VITALS: BP 77/33
--- NOTE | 2019-11-07 08:12 | NUR ---
ASSUMED CARE OF PATIENT AT SHIFT CHANGE PATIENT HAS DECLINED THIS NURSE CALLED WHO IS AT THE FACILITY AT THIS TIOME.
--- NOTE | 2019-11-07 10:44 | NUR ---
CM NOTIFIED THAT PT PASSED THIS AM. SPOUSE WAS AT BEDSIDE.
--- NOTE | 2019-11-07 21:07 | NUR ---
CALLED TO PATIENT'S ROOM AT 08:15 PATIENT HAD NO RESP NO B/P PUPILS FIXED AND DILATED. TWO NURSES ASSESSED PATIENT AT 08:[address] WILLIAMSON AT 08:25 HE STATED HE WOULD SIGN CERTIFICATE. MARY CALLED AT 08:35 SHE HAD BEEN CALLED BY THIS NURSE AT START OF MY SHIFT AND SHE HAD SAID AGUILA WAS AT HOME. CASSANDRA CONSULTANT NOTIFIED. SPIRICIAL CARE HERE ON UNIT AT 08:54 MTN NOTIFIED AT 08:30 SPOKE WITH MINA SALGADO. NOT ELGIBLE FOR DONOR REFERRAL NUMBER [id number]. BODY CLEANED AND WASHED PUT IN BODY BAG AND SECURITY CALLED. PT TO BE TAKEN TO [facility]. [phone].
== END 2019-11-07 12:41 | DRG 853 ==
LOC: ER 13:27 → EROBS 15:18 → 4W 15:18 → 4S 10-14 20:38
PROVIDERS: Emergency Medicine; Hospitalist; Internal Medicine; Nurse Practitioner Family; ADMIT Hospitalist; ATTEND Hospitalist
PROC: 0LBJ0ZZ Excision of Right Hip Tendon, Open Approach (ICD-10-PCS; principal; 2019-09-27)
PROC: 0LBK0ZZ Excision of Left Hip Tendon, Open Approach (ICD-10-PCS; principal; 2019-09-27)
DX: A41.9 Sepsis, unspecified organism (principal); L89.153 Pressure ulcer of sacral region, stage 3; L89.624 Pressure ulcer of left heel, stage 4; L89.214 Pressure ulcer of right hip, stage 4; L89.224 Pressure ulcer of left hip, stage 4; G93.41 Metabolic encephalopathy; E43 Unspecified severe protein-calorie malnutrition; J96.01 Acute respiratory failure with hypoxia; I42.6 Alcoholic cardiomyopathy; L02.31 Cutaneous abscess of buttock; D50.9 Iron deficiency anemia, unspecified; R53.81 Other malaise; L08.9 Local infection of the skin and subcutaneous tissue, unspecified; I50.9 Heart failure, unspecified; M10.9 Gout, unspecified; F03.90 Unspecified dementia, unspecified severity, without behavioral disturbance, psychotic disturbance, mood disturbance, and anxiety; G40.909 Epilepsy, unspecified, not intractable, without status epilepticus; L89.622 Pressure ulcer of left heel, stage 2; E78.5 Hyperlipidemia, unspecified; N40.0 Benign prostatic hyperplasia without lower urinary tract symptoms; G47.00 Insomnia, unspecified; E55.9 Vitamin D deficiency, unspecified; Z51.5 Encounter for palliative care; R65.20 Severe sepsis without septic shock; L89.619 Pressure ulcer of right heel, unspecified stage; D63.8 Anemia in other chronic diseases classified elsewhere; L89.899 Pressure ulcer of other site, unspecified stage; I11.0 Hypertensive heart disease with heart failure; Z79.899 Other long term (current) drug therapy; Z20.828 Contact with and (suspected) exposure to other viral communicable diseases; Z86.73 Personal history of transient ischemic attack (TIA), and cerebral infarction without residual deficits; Z87.891 Personal history of nicotine dependence; Z68.24 Body mass index [BMI] 24.0-24.9, adult
CPT/HCPCS: 10040; 10102; 50010; 50101; 50386; 50403; 53078; 57103; 62110; 62900; 70005